=== PATIENT | female | born 1990 | race African-American/Black ===

== ENCOUNTER 2016-05-27 23:15 | Inpatient (IN) | payer MEDICAID ==
[2016-05-28 00:04] LABS: ABSOLUTE EOSINOPHILS # (AUTO) 0.1 10^3/uL (0.0-0.6); ABSOLUTE LYMPHOCYTES (AUTO) 2.4 10^3/uL (0.5-4.7); ABSOLUTE MONOCYTES (AUTO) 0.7 10^3/uL (0.1-1.4); ABSOLUTE NEUT (AUTO) 4.1 10^3/uL (1.7-8.2); BASOPHILS % (AUTO) 0.5 % (0-2); EOSINOPHILS % (AUTO) 1.5 % (0-6); HEMATOCRIT 32.2 % (36.0-47.0); HEMOGLOBIN 10.6 g/dL (12.0-15.5); HGB HCT DIFFERENCE -0.4; LYMPHOCYTES % (AUTO) 32.6 % (13-45); MEAN CORPUSCULAR HEMOGLOBIN 27.2 pg (27.0-33.4); MEAN CORPUSCULAR HGB CONC 32.9 g/dL (32.0-36.0); MEAN CORPUSCULAR VOLUME 83 fl (80-97); MONOCYTES % (AUTO) 9.3 % (3-13); RED BLOOD COUNT 3.89 10^6/uL (3.72-5.28); RED CELL DISTRIBUTION WIDTH 16.3 % (11.5-14.0); SEGMENTED NEUTROPHILS % (AUTO) 56.1 % (42-78); WHITE BLOOD COUNT 7.4 10^3/uL (4.0-10.5)
[2016-05-28] MEDS ORDERED: MISOPROSTOL 0.1 MG TABLET PO PRN (00:06)
[2016-05-28] MEDS ORDERED: RINGERS SOLUTION,LACTATED 300 ML IV ONE (00:07)
[2016-05-28] MEDS ORDERED: OXYTOCIN/NORMAL SALINE 1,000 ML IV PRN ×2 (00:07→09:55)
[2016-05-28] MEDS ORDERED: RINGERS SOLUTION,LACTATED 1,000 ML IV PRN (00:07)
[2016-05-28 00:11] LABS: APPEARANCE,URINE SLIGHTLY-CLOUDY; BILIRUBIN,URINE NEGATIVE (NEGATIVE); GLUCOSE, URINE NEGATIVE (NEGATIVE); KETONES,URINE 20 mg/dL (NEGATIVE); LEUKOCYTE ESTERASE,URINE MODERATE (NEGATIVE); NITRITE,URINE NEGATIVE (NEGATIVE); PROTEIN,URINE NEGATIVE (NEGATIVE); URINE SPECIFIC GRAVITY 1.011; UROBILINOGEN,URINE NEGATIVE mg/dL (<2.0)
[2016-05-28] MEDS ORDERED: MISOPROSTOL 0.1 MG TABLET PV ONE ×2 (00:15→06:00)
[2016-05-28 00:27] LABS: URINE BARBITURATES SCREEN NEGATIVE; URINE METHADONE SCREEN NEGATIVE; URINE OPIATES LOW NEGATIVE; URINE PHENCYCLIDINE SCREEN NEGATIVE
[2016-05-28] MEDS ORDERED: MISOPROSTOL 0.1 MG TABLET ONE ×2 (01:11→05:40)
[2016-05-28] MEDS ORDERED: MISOPROSTOL 0.1 MG TABLET PO ONE (06:00)
--- NOTE | 2016-05-28 08:00 | L&D Flow Sheet ---
LD Flowsheet Datetime Report Generated by CPN: 05/28/2016 08:00 Datetime: 05/28/2016 07:49 NBP Sys/Susana/Mean (mmHg): 116 (QS system process) : 65 (QS system process) : 83 (QS system process) Pulse: 93 (QS system process) LaborFlag: Labor (QS system process) Datetime: 05/28/2016 07:11 Communication Communication: Report Given to @ A Breen RN (Anahi Ledgerwood, RN) Datetime: 05/28/2016 07:08 NBP Sys/Susana/Mean (mmHg): 110 (QS system process) : 58 (QS system process) : 77 (QS system process) Pulse: 97 (QS system process) LaborFlag: Labor (QS system process) Datetime: 05/28/2016 07:00 Uterine Activity Monitor Mode: External (Anahi Ledgerwood, RN) Frequency (min): 1-3 (Anahi Ledgerwood, RN) Quality: Mild/Moderate (Anahi Ledgerwood, RN) Duration (sec): 50-70 (Anahi Ledgerwood, RN) Duration Criteria: Less than Two 120 Second Contractions (Anahi Ledgerwood, RN) Pattern: Normal: <= 5 Contractions in 10 Minutes (Anahi Ledgerwood, RN) Resting Tone (Palpate): Relaxed (Anahi Ledgerwood, RN) Assessment A Monitor Mode: External US (Anahi Ledgerwood, RN) FHR Baseline Rate : 130 (Anahi Ledgerwood, RN) FHR Baseline Changes: No Baseline Change (Anahi Ledgerwood, RN) Variability: Moderate 6-25 bpm (Anahi Ledgerwood, RN) Accelerations: 15X15 (Anahi Ledgerwood, RN) Decelerations: None (Anahi Ledgerwood, RN) Datetime: 05/28/2016 06:30 Uterine Activity Monitor Mode: External (Anahi Ledgerwood, RN) Frequency (min): 1.5-3 (Anahi Ledgerwood, RN) Quality: Mild/Moderate (Anahi Ledgerwood, RN) Duration (sec): 40-80 (Anahi Ledgerwood, RN) Duration Criteria: Less than Two 120 Second Contractions (Anahi Ledgerwood, RN) Pattern: Normal: <= 5 Contractions in 10 Minutes (Anahi Ledgerwood, RN) Resting Tone (Palpate): Relaxed (Anahi Ledgerwood, RN) Assessment A Monitor Mode: External US (Anahi Ledgerwood, RN) FHR Baseline Rate : 135 (Anahi Ledgerwood, RN) FHR Baseline Changes: No Baseline Change (Anahi Ledgerwood, RN) Variability: Moderate 6-25 bpm (Anahi Ledgerwood, RN) Accelerations: 15X15 (Anahi Ledgerwood, RN) Decelerations: None (Anahi Ledgerwood, RN) Datetime: 05/28/2016 06:29 NBP Sys/Susana/Mean (mmHg): 122 (QS system process) : 62 (QS system process) : 84 (QS system process) Pulse: 85 (QS system process) LaborFlag: Labor (QS system process) Datetime: 05/28/2016 06:00 Uterine Activity Monitor Mode: External (Anahi Ledgerwood, RN) Frequency (min): 1.5-4.5 (Anahi Ledgerwood, RN) Quality: Mild/Moderate (Anahi Ledgerwood, RN) Duration (sec): 60-80 (Anahi Ledgerwood, RN) Duration Criteria: Less than Two 120 Second Contractions (Anahi Ledgerwood, RN) Pattern: Normal: <= 5 Contractions in 10 Minutes (Anahi Ledgerwood, RN) Resting Tone (Palpate): Relaxed (Anahi Ledgerwood, RN) Assessment A Monitor Mode: External US (Anahi Ledgerwood, RN) FHR Baseline Rate : 135 (Anahi Ledgerwood, RN) FHR Baseline Changes: No Baseline Change (Anahi Ledgerwood, RN) Variability: Moderate 6-25 bpm (Anahi Ledgerwood, RN) Accelerations: 15X15 (Anahi Ledgerwood, RN) Decelerations: None (Anahi Ledgerwood, RN) Datetime: 05/28/2016 05:51 Medications Cervical Ripening Agents: Cytotec @ 0.05 PO/0.025 PV (Anahi Ledgerwood, RN) Datetime: 05/28/2016 05:48 NBP Sys/Susana/Mean (mmHg): 110 (QS system process) : 57 (QS system process) : 80 (QS system process) Pulse: 88 (QS system process) Respirations: 14 (Anahi Ledgerwood, RN) LaborFlag: Labor (QS system process) Datetime: 05/28/2016 05:30 Uterine Activity Monitor Mode: External (Anahi Ledgerwood, RN) Frequency (min): 1.5-3.5 (Anahi Ledgerwood, RN) Quality: Mild/Moderate (Anahi Ledgerwood, RN) Duration (sec): 70-90 (Anahi Ledgerwood, RN) Duration Criteria: Less than Two 120 Second Contractions (Anahi Ledgerwood, RN) Pattern: Normal: <= 5 Contractions in 10 Minutes (Anahi Ledgerwood, RN) Resting Tone (Palpate): Relaxed (Anahi Ledgerwood, RN) Assessment A Monitor Mode: External US (Anahi Ledgerwood, RN) FHR Baseline Rate : 130 (Anahi Ledgerwood, RN) FHR Baseline Changes: No Baseline Change (Anahi Ledgerwood, RN) Variability: Moderate 6-25 bpm (Aanhi Ledgerwood, RN) Accelerations: 15X15 (Anahi Ledgerwood, RN) Decelerations: None (Anahi Ledgerwood, RN) Datetime: 05/28/2016 05:23 Communication Communication: Provider Orders Received; Call/Page Placed to Provider (Anahi Ledgerwood, RN) Communication Comments: Dr Wesly was notified over the phone of pt's VE. Order received for cytotec 0.05 mg PO and 0.025 PV (Anahi Ledgerwood, RN) Datetime: 05/28/2016 05:19 Vaginal Exam Dilatation (cm): 2.0 (Anahi Ledgerwood, RN) Effacement (%): 60 (Anahi Ledgerwood, RN) Station: -2 (Anahi Ledgerwood, RN) Exam by: O Ledgerwood RN (Anahi Ledgerwood, RN) Datetime: 05/28/2016 05:08 NBP Sys/Susana/Mean (mmHg): 128 (QS system process) : 91 (QS system process) : 104 (QS system process) Pulse: 100 (QS system process) LaborFlag: Labor (QS system process) Datetime: 05/28/2016 05:00 Uterine Activity Monitor Mode: External (Anahi Ledgerwood, RN) Frequency (min): 1.5-5 (Anahi Ledgerwood, RN) Quality: Mild/Moderate (Anahi Ledgerwood, RN) Duration (sec): 50-80 (Anahi Ledgerwood, RN) Duration Criteria: Less than Two 120 Second Contractions (Anahi Ledgerwood, RN) Pattern: Normal: <= 5 Contractions in 10 Minutes (Anahi Ledgerwood, RN) Resting Tone (Palpate): Relaxed (Anahi Ledgerwood, RN) Assessment A Monitor Mode: External US (Anahi Ledgerwood, RN) FHR Baseline Rate : 130 (Anahi Ledgerwood, RN) FHR Baseline Changes: No Baseline Change (Anahi Ledgerwood, RN) Variability: Moderate 6-25 bpm (Anahi Ledgerwood, RN) Accelerations: 15X15 (Anahi Ledgerwood, RN) Decelerations: None (Anahi Ledgerwood, RN) Datetime: 05/28/2016 04:30 Uterine Activity Monitor Mode: External (Anahi Ledgerwood, RN) Frequency (min): 1.5-4.5 (Anahi Ledgerwood, RN) Quality: Mild (Anahi Ledgerwood, RN) Duration (sec): 50-80 (Anahi Ledgerwood, RN) Duration Criteria: Less than Two 120 Second Contractions (Anahi Ledgerwood, RN) Pattern: Normal: <= 5 Contractions in 10 Minutes (Anahi Ledgerwood, RN) Resting Tone (Palpate): Relaxed (Anahi Ledgerwood, RN) Assessment A Monitor Mode: External US (Anahi Ledgerwood, RN) FHR Baseline Rate : 125 (Anahi Ledgerwood, RN) FHR Baseline Changes: No Baseline Change (Anahi Ledgerwood, RN) Variability: Moderate 6-25 bpm (Anahi Ledgerwood, RN) Accelerations: None (Anahi Ledgerwood, RN) Decelerations: None (Anahi Ledgerwood, RN) Datetime: 05/28/2016 04:28 NBP Sys/Susana/Mean (mmHg): 128 (QS system process) : 91 (QS system process) : 106 (QS system process) Pulse: 107 (QS system process) LaborFlag: Labor (QS system process) Datetime: 05/28/2016 04:00 Uterine Activity Monitor Mode: External (Anahi Ledgerwood, RN) Frequency (min): 1.5-5 (Anahi Ledgerwood, RN) Quality: Mild (Anahi Ledgerwood, RN) Duration (sec): 50-80 (Anahi Ledgerwood, RN) Duration Criteria: Less than Two 120 Second Contractions (Anahi Ledgerwood, RN) Pattern: Normal: <= 5 Contractions in 10 Minutes (Anahi Ledgerwood, RN) Resting Tone (Palpate): Relaxed (Anahi Ledgerwood, RN) Assessment A Monitor Mode: External US (Anahi Ledgerwood, RN) FHR Baseline Rate : 125 (Anahi Ledgerwood, RN) FHR Baseline Changes: No Baseline Change (Anahi Ledgerwood, RN) Variability: Moderate 6-25 bpm (Anahi Ledgerwood, RN) Accelerations: 15X15 (Anahi Ledgerwood, RN) Decelerations: None (Anahi Ledgerwood, RN) Datetime: 05/28/2016 03:48 NBP Sys/Susana/Mean (mmHg): 123 (QS system process) : 73 (QS system process) : 95 (QS system process) Pulse: 94 (QS system process) LaborFlag: Labor (QS system process) Datetime: 05/28/2016 03:30 Uterine Activity Monitor Mode: External (Anahikavon Logan, RN) Frequency (min): 2.5-4.5 (Anahikavon Logan, RN) Quality: Mild (Anahi Ledgerwood, RN) Duration (sec): 70-80 (Anahi Ledgerwood, RN) Duration Criteria: Less than Two 120 Second Contractions (Anahi Ledgerwood, RN) Pattern: Normal: <= 5 Contractions in 10 Minutes (Anahi Calvingerwood, RN) Resting Tone (Palpate): Relaxed (Anahi Calvingerwood, RN) Assessment A Monitor Mode: External US (Anahi Ledgerwood, RN) FHR Baseline Rate : 135 (Anahi Ledgerwood, RN) FHR Baseline Changes: No Baseline Change (Anahi Ledgerwood, RN) Variability: Moderate 6-25 bpm (Anahi Ledgerwood, RN) Accelerations: 15X15 (Anahi Ledgerwood, RN) Decelerations: None (Anahi Ledgerwood, RN) Datetime: 05/28/2016 03:00 Uterine Activity Monitor Mode: External (Anahi Ledgerwood, RN) Frequency (min): 1.5-4.5 (Anahi Ledgerwood, RN) Quality: Mild (Anahi Ledgerwood, RN) Duration (sec): 50-80 (Anahi Ledgerwood, RN) Duration Criteria: Less than Two 120 Second Contractions (Anahi Ledgerwood, RN) Pattern: Normal: <= 5 Contractions in 10 Minutes (Anahi Ledgerwood, RN) Resting Tone (Palpate): Relaxed (Anahi Ledgerwood, RN) Assessment A Monitor Mode: External US (Anahi Ledgerwood, RN) FHR Baseline Rate : 130 (Anahi Ledgerwood, RN) FHR Baseline Changes: No Baseline Change (Anahi Ledgerwood, RN) Variability: Moderate 6-25 bpm (Anahi Ledgerwood, RN) Accelerations: 15X15 (Anahi Ledgerwood, RN) Decelerations: None (Anahi Ledgerwood, RN) Datetime: 05/28/2016 02:30 Uterine Activity Monitor Mode: External (Anahi Ledgerwood, RN) Frequency (min): 1-3 (Anahi Ledgerwood, RN) Quality: Mild/Moderate (Anahi Ledgerwood, RN) Duration (sec): 60-80 (Anahi Ledgerwood, RN) Duration Criteria: Less than Two 120 Second Contractions (Anahi Ledgerwood, RN) Pattern: Normal: <= 5 Contractions in 10 Minutes (Anahi Ledgerwood, RN) Resting Tone (Palpate): Relaxed (Anahi Ledgerwood, RN) Assessment A Monitor Mode: External US (Anahi Ledgerwood, RN) FHR Baseline Rate : 135 (Anahi Ledgerwood, RN) FHR Baseline Changes: No Baseline Change (Anahi Ledgerwood, RN) Variability: Moderate 6-25 bpm (Anahi Ledgerwood, RN) Accelerations: 15X15 (Anahi Ledgerwood, RN) Decelerations: None (Anahi Ledgerwood, RN) Datetime: 05/28/2016 02:00 Uterine Activity Monitor Mode: External (Anahi Ledgerwood, RN) Frequency (min): 1-4.5 (Anahi Ledgerwood, RN) Quality: Mild/Moderate (Anahi Ledgerwood, RN) Duration (sec): 40-70 (Anahi Ledgerwood, RN) Duration Criteria: Less than Two 120 Second Contractions (Anahi Ledgerwood, RN) Pattern: Normal: <= 5 Contractions in 10 Minutes (Anahi Ledgerwood, RN) Resting Tone (Palpate): Relaxed (Anahi Ledgerwood, RN) Assessment A Monitor Mode: External US (Anahi Ledgerwood, RN) FHR Baseline Rate : 135 (Anahi Ledgerwood, RN) FHR Baseline Changes: No Baseline Change (Anahi Ledgerwood, RN) Variability: Moderate 6-25 bpm (Anahi Ledgerwood, RN) Accelerations: 15X15 (Anahi Ledgerwood, RN) Decelerations: None (Anahi Ledgerwood, RN) Datetime: 05/28/2016 01:30 Uterine Activity Monitor Mode: External (Anahi Ledgerwood, RN) Frequency (min): 2.5-3.5 (Anahi Ledgerwood, RN) Quality: Mild (Anahi Ledgerwood, RN) Duration (sec): 60-80 (Anahi Ledgerwood, RN) Duration Criteria: Less than Two 120 Second Contractions (Anahi Ledgerwood, RN) Pattern: Normal: <= 5 Contractions in 10 Minutes (Anahi Ledgerwood, RN) Resting Tone (Palpate): Relaxed (Anahi Ledgerwood, RN) Assessment A Monitor Mode: External US (Anahi Ledgerwood, RN) FHR Baseline Rate : 130 (Anahi Ledgerwood, RN) FHR Baseline Changes: No Baseline Change (Anahi Ledgerwood, RN) Variability: Moderate 6-25 bpm (Anahi Ledgerwood, RN) Accelerations: 15X15 (Anahi Ledgerwood, RN) Decelerations: None (Anahi Ledgerwood, RN) Datetime: 05/28/2016 01:21 Medications Cervical Ripening Agents: Cytotec @ 0.050 PO/ 0.025 PV (Anahi Ledgerwood, RN) Datetime: 05/28/2016 01:08 NBP Sys/Susana/Mean (mmHg): 149 (QS system process) : 78 (QS system process) : 105 (QS system process) Pulse: 100 (QS system process) Respirations: 14 (Anahi Calvingerwood, RN) LaborFlag: Labor (QS system process) Datetime: 05/28/2016 01:00 Uterine Activity Monitor Mode: External; Palpation (Anahi Calvingerwood, RN) Frequency (min): 2.5-3 (Anahi Ledgerwood, RN) Quality: Mild (Anahi Ledgerwood, RN) Duration (sec): 70-80 (Anahi Ledgerwood, RN) Duration Criteria: Less than Two 120 Second Contractions (Anahi Ledgerwood, RN) Pattern: Normal: <= 5 Contractions in 10 Minutes (Anahi Calvingerwood, RN) Resting Tone (Palpate): Relaxed (Anahi Ledgerwood, RN) Assessment A Monitor Mode: External US (Anahi Ledgerwood, RN) FHR Baseline Rate : 130 (Anahi Ledgerwood, RN) FHR Baseline Changes: No Baseline Change (Anahi Ledgerwood, RN) Variability: Moderate 6-25 bpm (Anahi Ledgerwood, RN) Accelerations: 15X15 (Anahi Ledgerwood, RN) Decelerations: None (Anahi Ledgerwood, RN) Datetime: 05/28/2016 00:30 Uterine Activity Monitor Mode: External (Anahi Ledgerwood, RN) Frequency (min): 2-3.5 (Anahi Ledgerwood, RN) Quality: Mild (Anahi Ledgerwood, RN) Duration (sec): 70-80 (Anahi Ledgerwood, RN) Duration Criteria: Less than Two 120 Second Contractions (Anahi Ledgerwood, RN) Pattern: Normal: <= 5 Contractions in 10 Minutes (Anahi Ledgerwood, RN) Resting Tone (Palpate): Relaxed (Anahi Ledgerwood, RN) Assessment A Monitor Mode: External US (Anahi Ledgerwood, RN) FHR Baseline Rate : 135 (Anahi Ledgerwood, RN) FHR Baseline Changes: No Baseline Change (Anahi Ledgerwood, RN) Variability: Moderate 6-25 bpm (Anahi Ledgerwood, RN) Accelerations: 15X15 (Anahi Ledgerwood, RN) Decelerations: None (Anahi Ledgerwood, RN) Datetime: 05/28/2016 00:00 Uterine Activity Monitor Mode: External; Palpation (Anahi Ledgerwood, RN) Frequency (min): 1.5-4 (Anahi Ledgerwood, RN) Quality: Mild (Anahi Ledgerwood, RN) Duration (sec): 60-80 (Anahi Ledgerwood, RN) Duration Criteria: Less than Two 120 Second Contractions (Anahi Ledgerwood, RN) Pattern: Normal: <= 5 Contractions in 10 Minutes (Anahi Ledgerwood, RN) Resting Tone (Palpate): Relaxed (Anahi Ledgerwood, RN) Assessment A Monitor Mode: External US (Anahi Ledgerwood, RN) FHR Baseline Rate : 130 (Anahi Ledgerwood, RN) FHR Baseline Changes: No Baseline Change (Anahi Ledgerwood, RN) Variability: Moderate 6-25 bpm (Anahi Ledgerwood, RN) Accelerations: 15X15 (Anahi Ledgerwood, RN) Decelerations: None (Anahi Ledgerwood, RN) Datetime: 05/27/2016 23:50 Pain Pain Scale: 1 ([facility], ) Pain Presence: Intermittent ([facility], ) Pain Type: Contraction ([facility], ) Pain Location: Abdomen ([facility], ) Pain Coping: Talking Through Contractions ([facility], ) Maternal Assessment Level of Consciousness: Fully Conscious ([facility], ) DTR's/Clonus: DTRs 2+; No Clonus ([facility], ) Headache: Denies ([facility], ) Breath Sounds, Left: Clear and Equal (Anahi Logan RN) Breath Sounds, Right: Clear and Equal (Anahi Logan RN) Nausea/Vomiting: Denies (Anahi Logan RN) RUQ Epigastric Pain: Denies (Anahi Logan RN) Teaching Instructional Method: Demo; Verbal; Patient Instructed (Anahi Logan RN) Plan of Care: Plan of Care Discussed (Anahi Logan RN) Unit Routine: [place] to Room; Call [place]; Bed; Visiting Policy; Handwashing; Monitoring; Safety/Fall Risk Prevention (Anahi Logan RN) Labor/Induction: Cervical Ripening; Induction (Anahi Logan RN) LaborFlag: Labor (QS system process) Datetime: 05/27/2016 23:39 Vaginal Exam Dilatation (cm): 1.5 (Anahi Ledgerwood, RN) Exam by: O Lissethwood RN (Anahi Ledgerwood, RN) Vaginal Exam Comments: thick, high (Anahi Ledgerwood, RN) Datetime: 05/27/2016 23:20 Vital Signs Stage of : Labor (Anahi Ledgerwood, RN)
[2016-05-28] MEDS ORDERED: OXYTOCIN/NORMAL SALINE 20 UNIT/1,000 ML RTUINJ ONE ×2 (09:55→18:23)
--- NOTE | 2016-05-28 16:17 | L&D Progress Notes ---
PROGRESS NOTES Datetime Report Generated by CPN: 05/28/2016 16:17 PROGRESS NOTE Impression: Reassuring Heart Rate Procedures: Artificial ROM; Sterile Vag Exam Plan: Continue Present Management Vital Signs : Reviewed; Within Normal Limits Comment: SVE w AROM with copious amount of clear fluid noted. Fluid slowly leaked out-vertex firmly against cx at finish. VAGINAL EXAM Dilatation: 2 Dilatation: 2 Effacement: 60 Effacement: 50 Station: -2 Station: -3 MEMBRANES Pooling: Negative Membranes: Ruptured Membranes: Intact Amniotic Fluid Color: Clear FETUS A Monitoring: External US FHR Category: Category I : 40.2 Estimated Weight (gm): 4000 Presentation: Vertex SIGNATURE SIGNATURE: [id number] Assignment: Mervin Garnett DO Signature: with User ID: [email or web address] : with User ID: Ava : I personally evaluated and examined the patient in conjunction with the MLP and agree with the assessment, treatment plan and disposition.
[2016-05-28] MEDS ORDERED: EPHEDRINE SULFATE INJ 50 MG/1 ML AMPULE ONE (18:23)
[2016-05-28] MEDS ORDERED: FENTANYL/BUPIVACAINE/NS/PF 200 MCG/100 ML RTUINJ EPI ONE (18:23)
[2016-05-28] MEDS ORDERED: LIDOCAINE 1% INJ-PF (10 MG/ML) 30 ML SDV ONE (18:23)
[2016-05-28] MEDS ORDERED: MISOPROSTOL 0.2 MG TABLET ONE (18:23)
[2016-05-28] MEDS ORDERED: BUPIVACAINE HCL 0.25 % INJ/PF (2.5 MG/1 ML) 30 ML VIAL ONE (18:24)
--- NOTE | 2016-05-28 20:01 | L&D Flow Sheet ---
LD Flowsheet Datetime Report Generated by CPN: 05/28/2016 20:00 Datetime: 05/28/2016 19:52 NBP Sys/Susana/Mean (mmHg): 140 (QS system process) : 74 (QS system process) : 98 (QS system process) Pulse: 107 (QS system process) LaborFlag: Labor (QS system process) Datetime: 05/28/2016 19:50 NBP Sys/Susana/Mean (mmHg): 144 (QS system process) : 94 (QS system process) : 115 (QS system process) LaborFlag: Labor (QS system process) Datetime: 05/28/2016 19:46 NBP Sys/Susana/Mean (mmHg): 140 (Berenice Prakash) : 78 (Berenice Prakash) Anesthesia Plans: Epidural (Berenice Prakash) Epidural Positioning: Sitting (Berenice Prakash) Epidural Procedure: Test Dose (Berenice Prakash) LaborFlag: Labor (QS system process) Datetime: 05/28/2016 19:44 NBP Sys/Susana/Mean (mmHg): 139 (Berenice Prakash) : 77 (Berenice Prakash) Anesthesia Plans: Epidural (Berenice Prakash) Epidural Positioning: Sitting (Berenice Prakash) Epidural Procedure: Cath Placed (Berenice Prakash) LaborFlag: Labor (QS system process) Datetime: 05/28/2016 19:43 Anesthesia Plans: Epidural (Berenice Prakash) Epidural Positioning: Sitting (Berenice Prakash) Datetime: 05/28/2016 19:42 NBP Sys/Susana/Mean (mmHg): 140 (Berenice Prakash) : 76 (Berenice Prakash) LaborFlag: Labor (QS system process) Datetime: 05/28/2016 19:40 NBP Sys/Susana/Mean (mmHg): 138 (Berenice Prakash) : 79 (Berenice Prakash) LaborFlag: Labor (QS system process) Datetime: 05/28/2016 19:38 Anesthesia Comments: Dr Adwoakan at the bedside (Berenice Prakash) Datetime: 05/28/2016 19:34 NBP Sys/Susana/Mean (mmHg): 137 (QS system process) : 78 (QS system process) : 100 (QS system process) Pulse: 109 (QS system process) LaborFlag: Labor (QS system process) Datetime: 05/28/2016 19:29 Pulse: 108 (QS system process) SpO2 (%): 92 (QS system process) LaborFlag: Labor (QS system process) Datetime: 05/28/2016 19:28 Procedure Type: epidural (Berenice Prakash) Procedure Verify: Correct Patient Identity; Correct Side and Site are Marked; Accurate Procedure Consent Form; Agreement on Procedure to be Done; Correct Patient Position; Relevant Images and Results are Properly Labeled and Displayed; Safety Precautions Based on Patient History or Medication Use (Berenice Prakash) Anesthesia Plans: Epidural (Berenice Prakash) Epidural Positioning: Sitting (Berenice Prakash) Datetime: 05/28/2016 19:22 Anesthesia Comments: patient sitting for epidural (Berenice Prakash) Datetime: 05/28/2016 19:19 NBP Sys/Susana/Mean (mmHg): 148 (QS system process) : 86 (QS system process) : 110 (QS system process) Pulse: 115 (QS system process) LaborFlag: Labor (QS system process) Datetime: 05/28/2016 19:18 Communication Comments: Report given to AKimmy Prakash RN (Shannan Breen, RN) Datetime: 05/28/2016 19:16 NBP Sys/Susana/Mean (mmHg): 147 (QS system process) : 76 (QS system process) : 103 (QS system process) Pulse: 106 (QS system process) LaborFlag: Labor (QS system process) Datetime: 05/28/2016 19:15 Monitor Mode: External; Palpation (Shannan Breen RN) Frequency (min): 1-4 (Shannan Breen RN) Quality: Moderate (Shannan Breen RN) Duration (sec): 50-80 (Shannan Breen RN) Resting Tone (Palpate): Relaxed (Shannan Breen RN) Monitor Mode: External US (Shannan Breen RN) FHR Baseline Rate : 130 (Shannan Breen RN) Variability: Moderate 6-25 bpm (Shannan Breen RN) Accelerations: 15X15 (Shannan Breen RN) Decelerations: None (Shannan Breen RN) Pitocin (milliunit): Pitocin Remains (milliunits) @ 20 (Shannan Breen RN) Procedure Type: epidural (Berenice Prakash) Procedure Verify: Correct Patient Identity; Correct Side and Site are Marked; Accurate Procedure Consent Form; Agreement on Procedure to be Done; Correct Patient Position; Relevant Images and Results are Properly Labeled and Displayed; Safety Precautions Based on Patient History or Medication Use (Berenice Prakash) Datetime: 05/28/2016 19:13 Monitor Interventions for FHR: Ultrasound Adjusted (Shannan Breen RN) Communication: RN at Bedside (Shannan Breen RN) Datetime: 05/28/2016 19:11 Patient Care Comments: IV infiltrated. New IV started in L Forearm 18gauge (Shannan Breen RN) Datetime: 05/28/2016 19:05 NBP Sys/Susana/Mean (mmHg): 155 (QS system process) : 105 (QS system process) : 122 (QS system process) Pulse: 110 (QS system process) LaborFlag: Labor (QS system process) Datetime: 05/28/2016 19:00 Monitor Mode: External; Palpation (Shannan Breen RN) Frequency (min): 1-4 (Shannan Breen RN) Quality: Moderate (Shannan Breen RN) Duration (sec): 50-80 (Shannan rBeen RN) Resting Tone (Palpate): Relaxed (Shannan Breen RN) Monitor Mode: External US (Shannan Breen RN) FHR Baseline Rate : 125 (Shannan Breen RN) Variability: Moderate 6-25 bpm (Shannan Breen RN) Accelerations: 15X15 (Shannan Breen RN) Decelerations: None (Shannan Breen RN) Pitocin (milliunit): Pitocin Remains (milliunits) @ 20 (Shannan Breen RN) Procedure Type: epidural (Berenicevidhi Prakash) Procedure Verify: Correct Patient Identity; Correct Side and Site are Marked; Accurate Procedure Consent Form; Agreement on Procedure to be Done; Correct Patient Position; Relevant Images and Results are Properly Labeled and Displayed; Safety Precautions Based on Patient History or Medication Use (Berenicevidhi Prakash) Datetime: 05/28/2016 18:56 Bedside Blood Glucose: 65 L (Annotations: MD Notified) (QS system process) LaborFlag: Labor (QS system process) Datetime: 05/28/2016 18:49 NBP Sys/Susana/Mean (mmHg): 141 (QS system process) : 79 (QS system process) : 102 (QS system process) Pulse: 103 (QS system process) LaborFlag: Labor (QS system process) Datetime: 05/28/2016 18:45 Monitor Mode: External (Shannan Breen RN) Frequency (min): 1-3 (Shannan Breen RN) Quality: Mild/Moderate (Shannan Breen RN) Duration (sec): 50-80 (Shannan Breen RN) Resting Tone (Palpate): Relaxed (Shannan Breen RN) Monitor Mode: External US (Shannan Breen RN) FHR Baseline Rate : 120 (Shannan Breen RN) Variability: Moderate 6-25 bpm (Shannan Breen RN) Accelerations: 15X15 (Shannan Breen RN) Decelerations: None (Shannan Breen RN) Pitocin (milliunit): Pitocin Remains (milliunits) @ 20 (Shannan Breen RN) Datetime: 05/28/2016 18:39 Monitor Interventions for UA: [place] Adjusted (Shannan Breen RN) Dilatation (cm): 5.5 (Shannan Breen RN) Effacement (%): 80 (Shannan Breen RN) Station: -1 (Shannan Breen RN) Exam by: Ulices Charles RNC (Shannan Breen RN) Datetime: 05/28/2016 18:34 NBP Sys/Susana/Mean (mmHg): 137 (QS system process) : 99 (QS system process) : 114 (QS system process) Pulse: 100 (QS system process) LaborFlag: Labor (QS system process) Datetime: 05/28/2016 18:30 Monitor Mode: External (Shannan Breen RN) Frequency (min): 1-4 (Shannan Breen RN) Quality: Mild/Moderate (Shannan Breen RN) Duration (sec): 50-80 (Shannan Breen RN) Resting Tone (Palpate): Relaxed (Shannan Breen RN) Monitor Mode: External US (Shannan Breen RN) FHR Baseline Rate : 125 (Shannan Breen RN) Variability: Moderate 6-25 bpm (Shannan Breen RN) Accelerations: 15X15 (Shannan Breen RN) Decelerations: None (Shannan Breen RN) Pitocin (milliunit): Pitocin Remains (milliunits) @ 20 (Shannan Breen RN) Datetime: 05/28/2016 18:16 Pain Coping: Requesting Pain Medication or Epidural (Shannan Breen RN) IV/Blood Work: IV Bolus Started (Shannan Breen RN) Procedure Verify: Correct Patient Identity; Correct Side and Site are Marked; Accurate Procedure Consent Form; Agreement on Procedure to be Done (Shannan Breen RN) Anesthesia Plans: Epidural (Shannan Breen RN) Datetime: 05/28/2016 18:15 Monitor Mode: External; Palpation (Shannan Breen RN) Quality: Mild/Moderate (Shannan Breen RN) Resting Tone (Palpate): Relaxed (Shannan Breen RN) Contraction Comments: contractions not tracing on monitor (Shannan Breen RN) Monitor Mode: External US (Shannan Breen RN) FHR Baseline Rate : 135 (Shannan Breen RN) Variability: Moderate 6-25 bpm (Shannan Breen RN) Accelerations: 10X10 (Shannan Breen RN) Decelerations: None (Shannan Breen RN) Pitocin (milliunit): Pitocin Remains (milliunits) @ 20 (Shannan Breen RN) Datetime: 05/28/2016 18:14 Dilatation (cm): 3.0 (Shannan Breen, RN) Effacement (%): 70 (Shannan Breen, RN) Station: -1 (Shannan Breen, RN) Exam by: Jhonathan Breen RN (Shannan Breen RN) Datetime: 05/28/2016 18:10 Monitor Interventions for UA: [place] Adjusted (Shannan Breen, RN) Datetime: 05/28/2016 18:01 Pitocin (milliunit): Pitocin Remains (milliunits) @ 20 (Shannan Breen, RN) Datetime: 05/28/2016 18:00 Monitor Mode: External (Shannan Breen, RN) Frequency (min): 1-3 (Shannan Breen, RN) Quality: Mild/Moderate (Shannan Breen, RN) Duration (sec): 50-80 (Shannan Breen, RN) Resting Tone (Palpate): Relaxed (Shannan Breen, RN) Monitor Mode: External US (Shannan Breen, RN) FHR Baseline Rate : 135 (Shannan Breen, RN) Variability: Moderate 6-25 bpm (Shannan Breen, RN) Accelerations: 10X10 (Shannan Breen, RN) Decelerations: None (Shannan Breen, RN) Datetime: 05/28/2016 17:55 Monitor Interventions for UA: [place] Adjusted (Shannan Breen, RN) Datetime: 05/28/2016 17:54 Monitor Interventions for FHR: Ultrasound Adjusted (Shannan Breen RN) Communication: RN at Bedside (Shannan Breen RN) Datetime: 05/28/2016 17:45 Monitor Mode: External; Palpation (Shannan Breen RN) Frequency (min): 1-3 (Shannan Breen RN) Quality: Mild/Moderate (Shannan Breen RN) Duration (sec): 50-80 (Shannan Breen, RN) Resting Tone (Palpate): Relaxed (Shannan Breen RN) Monitor Mode: External US (Shannan Breen RN) FHR Baseline Rate : 125 (Shannan Breen RN) Variability: Moderate 6-25 bpm (Shannan Breen, RN) Accelerations: 15X15 (Shannan Breen, RN) Decelerations: None (Shannan Breen, RN) Pain Coping: Breathing Through Contractions (Shannan Breen RN) Pain Assessment Comments: Pt asking about different pain control. Denies need for pain medicine or epidural at this time. Offered warm compress, position changes. FOB at bedside. (Shannan Breen RN) Pitocin (milliunit): Pitocin Remains (milliunits) @ 20 (Shannan Breen RN) Comfort Measures: Breathing/Relaxation; Coaching; Hot/Cold Pack; Family Support (Shannan Breen RN) LaborFlag: Labor (QS system process) Datetime: 05/28/2016 17:35 NBP Sys/Susana/Mean (mmHg): 141 (QS system process) : 77 (QS system process) : 103 (QS system process) Pulse: 104 (QS system process) LaborFlag: Labor (QS system process) Datetime: 05/28/2016 17:30 Monitor Mode: External; Palpation (Shannan Breen RN) Frequency (min): 1-5 (Shannan Breen RN) Quality: Mild/Moderate (Shannan Breen RN) Duration (sec): 50-80 (Shannan Breen RN) Resting Tone (Palpate): Relaxed (Shannan Breen RN) Monitor Mode: External US (Shannan Breen RN) FHR Baseline Rate : 135 (Shannan Breen RN) Variability: Moderate 6-25 bpm (Shannan Breen RN) Accelerations: 15X15 (Shannan Breen RN) Decelerations: None (Shannan Breen RN) Pitocin (milliunit): Pitocin Remains (milliunits) @ 20 (Shannan Breen RN) Datetime: 05/28/2016 17:19 NBP Sys/Susana/Mean (mmHg): 132 (QS system process) : 73 (QS system process) : 97 (QS system process) Pulse: 90 (QS system process) LaborFlag: Labor (QS system process) Datetime: 05/28/2016 17:15 Monitor Mode: External (Shannan Breen RN) Frequency (min): 1-3 (Shannan Breen RN) Quality: Mild (Shannan Breen RN) Duration (sec): 50-80 (Shannan Breen RN) Resting Tone (Palpate): Relaxed (Shannan Breen RN) Monitor Mode: External US (Shannan Breen RN) FHR Baseline Rate : 135 (Shannan Breen RN) Variability: Moderate 6-25 bpm (Shannan Breen RN) Accelerations: 15X15 (Shannan Breen RN) Decelerations: None (Shannan Breen RN) Pitocin (milliunit): Pitocin Remains (milliunits) @ 20 (Shannan Breen RN) Datetime: 05/28/2016 17:09 Respirations: 16 (Shannan Breen RN) Temperature (F): 98.6 (Shannan Breen RN) Temperature (C): 37.0 (QS system process) Pain Scale: 4 (Shannan Breen RN) Pain Presence: Intermittent (Shannan Breen RN) Pain Type: Contraction (Shannan Breen RN) Pain Location: Abdomen (Shannan Breen RN) Pain Relief Measures: Comfort Measures (Shannan Breen RN) Pain Coping: Talking Through Contractions (Shannan Breen RN) LaborFlag: Labor (QS system process) Datetime: 05/28/2016 17:04 NBP Sys/Susana/Mean (mmHg): 135 (QS system process) : 77 (QS system process) : 100 (QS system process) Pulse: 95 (QS system process) LaborFlag: Labor (QS system process) Datetime: 05/28/2016 17:00 Monitor Mode: External (Shannan Breen, RN) Frequency (min): 1-3 (Shannan Breen, RN) Quality: Mild (Shannan Jamshid, RN) Duration (sec): 50-80 (Shannan Jamshid, RN) Resting Tone (Palpate): Relaxed (Shannan Breen, RN) Monitor Mode: External US (Shannan Breen, RN) FHR Baseline Rate : 125 (Shannan Jamshid, RN) Variability: Moderate 6-25 bpm (Shannan Breen, RN) Accelerations: 15X15 (Shannan Jamshid, RN) Decelerations: None (Shannangilda Breen, RN) Pitocin (milliunit): Pitocin Remains (milliunits) @ 20 (Shannan Jamshid, RN) Datetime: 05/28/2016 16:50 NBP Sys/Susana/Mean (mmHg): 134 (QS system process) : 77 (QS system process) : 99 (QS system process) Pulse: 96 (QS system process) LaborFlag: Labor (QS system process) Datetime: 05/28/2016 16:45 Monitor Mode: External (Shannan Breen, RN) Frequency (min): 1-5 (Shannan Breen RN) Quality: Mild (Shannan Breen, RN) Duration (sec): 50-80 (Shannan Breen, RN) Duration Criteria: Less than Two 120 Second Contractions (Shannan Breen, RN) Pattern: Normal: <= 5 Contractions in 10 Minutes (Shannan Breen RN) Resting Tone (Palpate): Relaxed (Shannan Breen, RN) Monitor Mode: External US (Shannan Breen, RN) FHR Baseline Rate : 125 (Shannan Breen, RN) Variability: Moderate 6-25 bpm (Shannan Breen, RN) Accelerations: 15X15 (Shannan Breen, RN) Decelerations: None (Shannan Breen, RN) Pitocin (milliunit): Pitocin Remains (milliunits) @ 20 (Shannan Breen, RN) Datetime: 05/28/2016 16:34 NBP Sys/Susana/Mean (mmHg): 120 (QS system process) : 71 (QS system process) : 90 (QS system process) Pulse: 91 (QS system process) LaborFlag: Labor (QS system process) Datetime: 05/28/2016 16:30 Monitor Mode: External (Shannan Jamshid, RN) Frequency (min): 1-4 (Shannan Breen, RN) Quality: Mild (Shannan Breen, RN) Duration (sec): 50-80 (Shannan Jamshid, RN) Resting Tone (Palpate): Relaxed (Shannangilda Breen, RN) Monitor Mode: External US (Shannangilda Breen, RN) FHR Baseline Rate : 125 (Shannan Jamshid, RN) Variability: Moderate 6-25 bpm (Shannan Jamshid, RN) Accelerations: 15X15 (Shannan Jamshid, RN) Decelerations: None (Shannangilda Breen, RN) Pitocin (milliunit): Pitocin Remains (milliunits) @ 20 (Shannan Jamshid, RN) Datetime: 05/28/2016 16:19 NBP Sys/Susana/Mean (mmHg): 128 (QS system process) : 78 (QS system process) : 97 (QS system process) Pulse: 81 (QS system process) LaborFlag: Labor (QS system process) Datetime: 05/28/2016 16:15 Monitor Mode: External (Shannan Breen RN) Frequency (min): 1-3 (Shannan Breen RN) Quality: Mild (Shannan Breen RN) Duration (sec): 50-80 (Shannan Breen RN) Resting Tone (Palpate): Relaxed (Shannan Breen RN) Monitor Mode: External US (Shannan Breen RN) FHR Baseline Rate : 135 (Shannan Breen RN) Variability: Moderate 6-25 bpm (Shannan Breen RN) Accelerations: 15X15 (Shannan Breen RN) Decelerations: None (Shannan Breen RN) Pitocin (milliunit): Pitocin Remains (milliunits) @ 20 (Shannan Breen RN) Datetime: 05/28/2016 16:07 Dilatation (cm): 2.0 (Shannan Breen RN) Effacement (%): 60 (Shannan Breen RN) Station: -2 (Shannan Breen RN) Exam by: Bernabe houser CNM (Shannan Breen RN) Membrane Status: Ruptured (Shannan Breen RN) Membranes Rupture Method: Artificial (Shannan Breen RN) Amniotic Fluid Color: Clear (Shannan Breen RN) Amniotic Fluid Amount: Large (Shannan Breen RN) Amniotic Fluid Odor: Normal (Shannan Breen RN) Datetime: 05/28/2016 16:05 Communication Comments: Bernabe Houser CNM at bedside (Shannan Breen RN) Datetime: 05/28/2016 16:00 Monitor Mode: External (Shannan Breen RN) Frequency (min): 1-3 (Shannan Breen RN) Quality: Mild (Shannan Breen RN) Duration (sec): 50-80 (Shannan Breen RN) Resting Tone (Palpate): Relaxed (Shannan Breen RN) Monitor Mode: External US (Shannan Breen RN) FHR Baseline Rate : 130 (Shannan Breen RN) Variability: Moderate 6-25 bpm (Shannan Breen RN) Accelerations: 15X15 (Shannan Breen RN) Decelerations: None (Shannan Breen RN) Pitocin (milliunit): Pitocin Remains (milliunits) @ 20 (Shannan Breen RN) I/O Interventions: Up to BR (Shannan Breen RN) Datetime: 05/28/2016 15:45 Monitor Mode: External (Shannan Breen, RN) Frequency (min): 1-3 (Shannangilda Breen, RN) Quality: Mild (Shannan Jamshid, RN) Duration (sec): 50-80 (Shannangilda Breen, RN) Duration Criteria: Less than Two 120 Second Contractions (Shannangilda Breen, RN) Pattern: Normal: <= 5 Contractions in 10 Minutes (Shannan Jamshid, RN) Resting Tone (Palpate): Relaxed (Shannan Breen, RN) Monitor Mode: External US (Shannan Breen, RN) FHR Baseline Rate : 130 (Shannangilda Breen, RN) Variability: Moderate 6-25 bpm (Shannan Breen, RN) Accelerations: 15X15 (Shannan Breen, RN) Decelerations: None (Shannangilda Breen, RN) Pitocin (milliunit): Pitocin Remains (milliunits) @ 20 (Shannan Jamshid, RN) Datetime: 05/28/2016 15:37 I/O Interventions: Up to BR (Shannan Breen, RN) Datetime: 05/28/2016 15:30 Monitor Mode: External (Shannangilda Breen, RN) Frequency (min): 1-3 (Shannan Breen, RN) Quality: Mild (Shannan Jamshid, RN) Duration (sec): 50-80 (Shannangilda Breen, RN) Resting Tone (Palpate): Relaxed (Shannan Breen, RN) Monitor Mode: External US (Shannan Breen, RN) FHR Baseline Rate : 130 (Shannangilda Breen, RN) Variability: Moderate 6-25 bpm (Shannangilda Breen, RN) Accelerations: 15X15 (Shannangilda Breen, RN) Decelerations: None (Shannan Breen, RN) Pitocin (milliunit): Pitocin Remains (milliunits) @ 20 (Shannan Jamshid, RN) Datetime: 05/28/2016 15:23 IV/Blood Work: New IV Bag Hung (Shannan Jamshid, RN) Datetime: 05/28/2016 15:15 Monitor Mode: External (Shannan Breen, RN) Frequency (min): 1-3 (Shannan Breen, RN) Quality: Mild (Shannan Breen, RN) Duration (sec): 50-80 (Shannan Breen, RN) Resting Tone (Palpate): Relaxed (Shannan Breen, RN) Monitor Mode: External US (Shannan Breen, RN) FHR Baseline Rate : 135 (Shannan Breen, RN) Variability: Moderate 6-25 bpm (Shannan Breen, RN) Accelerations: 15X15 (Shannan Breen, RN) Decelerations: None (Shannan Breen, RN) Pitocin (milliunit): Pitocin Remains (milliunits) @ 20 (Shannan Breen, RN) Datetime: 05/28/2016 15:00 Monitor Mode: External (Shannan Breen, RN) Frequency (min): 1-3 (Shannan Breen, RN) Quality: Mild (Shannan Breen, RN) Duration (sec): 50-80 (Shannan Breen, RN) Resting Tone (Palpate): Relaxed (Shannan Breen, RN) Monitor Mode: External US (Shannan Breen, RN) FHR Baseline Rate : 135 (Shannan Breen, RN) Variability: Moderate 6-25 bpm (Shannan Breen, RN) Accelerations: 15X15 (Shannan Breen, RN) Decelerations: None (Shannan Breen, RN) Pitocin (milliunit): Pitocin Remains (milliunits) @ 20 (Shannan Breen, RN) Datetime: 05/28/2016 14:45 Monitor Mode: External (Shannan Breen RN) Frequency (min): 1-2 (Shannan Breen RN) Quality: Mild (Shannan Breen, RN) Duration (sec): 50-80 (Shannan Breen RN) Resting Tone (Palpate): Relaxed (Shannan Breen RN) Monitor Mode: External US (Shannan Breen RN) FHR Baseline Rate : 125 (Shannan Breen RN) Variability: Moderate 6-25 bpm (Shannan Breen, RN) Accelerations: 15X15 (Shannan Breen, RN) Decelerations: None (Shannan Breen, RN) Pitocin (milliunit): Pitocin Remains (milliunits) @ 20 (Shannan Breen, RN) Datetime: 05/28/2016 14:33 Monitor Interventions for FHR: Ultrasound Adjusted (Shannan Breen RN) Communication: RN at Bedside (Shannan Breen RN) Datetime: 05/28/2016 14:31 Patient Care Comments: Pt sitting on edge of bed (Shannan Breen, RN) Datetime: 05/28/2016 14:30 Monitor Mode: External (Shannan Breen RN) Frequency (min): 1-3 (Shannan Breen RN) Quality: Mild (Shannan Breen, RN) Duration (sec): 50-80 (Shannan Breen, RN) Resting Tone (Palpate): Relaxed (Shannan Breen RN) Monitor Mode: External US (Shannan Breen RN) FHR Baseline Rate : 130 (Shannan Breen RN) Variability: Moderate 6-25 bpm (Shannan Breen, RN) Accelerations: 15X15 (Shannan Breen, RN) Decelerations: None (Shannan Breen, RN) Pitocin (milliunit): Pitocin Remains (milliunits) @ 20 (Shannan Breen RN) Datetime: 05/28/2016 14:19 NBP Sys/Susana/Mean (mmHg): 113 (QS system process) : 71 (QS system process) : 87 (QS system process) Pulse: 96 (QS system process) LaborFlag: Labor (QS system process) Datetime: 05/28/2016 14:15 Monitor Mode: External (Shannan Breen RN) Frequency (min): 1-3 (Shannan Breen RN) Quality: Mild (Shannan Breen RN) Duration (sec): 50-80 (Shannan Breen RN) Resting Tone (Palpate): Relaxed (Shannan Breen RN) Monitor Mode: External US (Shannan Breen RN) FHR Baseline Rate : 135 (Shannan Breen RN) Variability: Moderate 6-25 bpm (Shannan Breen RN) Accelerations: 15X15 (Shannan Breen, RN) Decelerations: None (Shannan Breen, RN) Pitocin (milliunit): Pitocin Remains (milliunits) @ 20 (Shannan Breen RN) Datetime: 05/28/2016 14:05 NBP Sys/Susana/Mean (mmHg): 126 (QS system process) : 76 (QS system process) : 94 (QS system process) Pulse: 96 (QS system process) LaborFlag: Labor (QS system process) Datetime: 05/28/2016 14:01 Patient Position/Activity: Right Lateral (Shannan Breen RN) Datetime: 05/28/2016 14:00 Monitor Mode: External (Shannan Breen RN) Frequency (min): 1-2 (Shannan Breen RN) Quality: Mild (Shannan Breen RN) Duration (sec): 50-80 (Shannan Breen RN) Resting Tone (Palpate): Relaxed (Shannan Breen RN) Monitor Mode: External US (Shannan Breen RN) FHR Baseline Rate : 135 (Shannan Breen RN) Variability: Moderate 6-25 bpm (Shannan Breen RN) Accelerations: 15X15 (Shannan Breen RN) Decelerations: None (Shannan Breen RN) Pitocin (milliunit): Pitocin Remains (milliunits) @ 20 (Shannan Breen RN) Datetime: 05/28/2016 13:49 NBP Sys/Susana/Mean (mmHg): 134 (QS system process) : 67 (QS system process) : 95 (QS system process) Pulse: 98 (QS system process) LaborFlag: Labor (QS system process) Datetime: 05/28/2016 13:45 Monitor Mode: External (Shannan Breen RN) Frequency (min): 1-3 (Shannan Breen RN) Quality: Mild (Shannan Breen RN) Duration (sec): 50-80 (Shannan Breen RN) Resting Tone (Palpate): Relaxed (Shannan Breen RN) Monitor Mode: External US (Shannan Breen RN) FHR Baseline Rate : 135 (Shannan Breen RN) Variability: Moderate 6-25 bpm (Shannan Breen RN) Accelerations: 15X15 (Shannan Breen RN) Decelerations: None (Shannan Breen RN) Pitocin (milliunit): Pitocin Remains (milliunits) @ 20 (Shannan Breen RN) Datetime: 05/28/2016 13:34 NBP Sys/Susana/Mean (mmHg): 126 (QS system process) : 66 (QS system process) : 85 (QS system process) Pulse: 96 (QS system process) LaborFlag: Labor (QS system process) Datetime: 05/28/2016 13:30 Monitor Mode: External (Shannan Breen RN) Frequency (min): 1-3 (Shannan Breen RN) Quality: Mild (Shannan Breen RN) Duration (sec): 50-80 (Shannan Breen RN) Resting Tone (Palpate): Relaxed (Shannan Breen RN) Monitor Mode: External US (Shannan Breen RN) FHR Baseline Rate : 130 (Shannan Breen RN) Variability: Moderate 6-25 bpm (Shannan Breen RN) Accelerations: 15X15 (Shannan Breen RN) Decelerations: None (Shannan Breen RN) Pitocin (milliunit): Pitocin Increased to (milliunits) @ 20 (Shannan Breen RN) Datetime: 05/28/2016 13:27 Patient Position/Activity: Left Lateral (Shannan Breen, RN) Datetime: 05/28/2016 13:26 Comments: tracing maternal HR, adjusted ultrasound (Shannan Breen, RN) Datetime: 05/28/2016 13:20 I/O Interventions: Up to BR (Shannan Breen, RN) Datetime: 05/28/2016 13:15 Monitor Mode: External (Shannan Breen RN) Frequency (min): 1-2 (Shannan Breen, RN) Quality: Mild (Shannan Breen, RN) Duration (sec): 50-80 (Shannan Breen, RN) Resting Tone (Palpate): Relaxed (Shannan Breen, RN) Monitor Mode: External US (Shannan Breen RN) FHR Baseline Rate : 135 (Shannan Breen, RN) Variability: Moderate 6-25 bpm (Shannan Breen, RN) Accelerations: 15X15 (Shannan Breen, RN) Decelerations: None (Shannan Breen, RN) Pitocin (milliunit): Pitocin Increased to (milliunits) @ 18 (Shannan Breen, RN) Datetime: 05/28/2016 13:05 NBP Sys/Susana/Mean (mmHg): 121 (QS system process) : 82 (QS system process) : 95 (QS system process) Pulse: 88 (QS system process) LaborFlag: Labor (QS system process) Datetime: 05/28/2016 13:00 Monitor Mode: External (Shannan Breen, RN) Frequency (min): 1-3 (Shannan Breen RN) Quality: Mild (Shannan Breen, RN) Duration (sec): 50-80 (Shannan Breen, RN) Resting Tone (Palpate): Relaxed (Shannan Breen, RN) Monitor Mode: External US (Shannan Breen, RN) FHR Baseline Rate : 135 (Shannan Breen RN) Variability: Moderate 6-25 bpm (Shannan Breen, RN) Accelerations: 15X15 (Shannan Breen, RN) Decelerations: None (Shannan Breen, RN) Pitocin (milliunit): Pitocin Increased to (milliunits) @ 16 (Shannan Breen, RN) Datetime: 05/28/2016 12:49 NBP Sys/Susana/Mean (mmHg): 127 (QS system process) : 57 (QS system process) : 82 (QS system process) Pulse: 87 (QS system process) LaborFlag: Labor (QS system process) Datetime: 05/28/2016 12:45 Monitor Mode: External (Shannan Breen, RN) Frequency (min): 1-4 (Shannan Breen, RN) Quality: Mild (Shannan Breen, RN) Duration (sec): 50-80 (Shannan Breen, RN) Resting Tone (Palpate): Relaxed (Shannan Breen, RN) Monitor Mode: External US (Shannan Breen, RN) FHR Baseline Rate : 125 (Shannan Breen, RN) Variability: Moderate 6-25 bpm (Shannan Breen, RN) Accelerations: None (Shannan Breen, RN) Decelerations: None (Shannan Breen, RN) Pitocin (milliunit): Pitocin Remains (milliunits) @ 14 (Shannan Breen, RN) Datetime: 05/28/2016 12:33 Monitor Interventions for FHR: Ultrasound Adjusted (Shannan Breen, RN) Datetime: 05/28/2016 12:30 Respirations: 16 (Shannan Breen RN) Temperature (F): 98.0 (Shannan Breen RN) Temperature (C): 36.7 (QS system process) Monitor Mode: External (Shannan Breen RN) Frequency (min): 1-3 (Shannan Breen RN) Quality: Mild (Shannan Breen RN) Duration (sec): 50-80 (Shannan Breen RN) Resting Tone (Palpate): Relaxed (Shannan Breen RN) Monitor Mode: External US (Shannan Breen RN) FHR Baseline Rate : 125 (Shannan Breen RN) Variability: Moderate 6-25 bpm (Shannan Breen RN) Decelerations: None (Shannan Breen RN) Pain Scale: 1 (Shannan Breen RN) Pain Presence: Intermittent (Shannan Breen RN) Pain Type: Contraction (Shannan Breen RN) Pain Location: Abdomen (Shannan Breen RN) Pain Relief Measures: Comfort Measures (Shannan Breen RN) Pain Coping: Talking Through Contractions (Shannan Breen RN) Pitocin (milliunit): Pitocin Remains (milliunits) @ 14 (Shannan Breen RN) LaborFlag: Labor (QS system process) Datetime: 05/28/2016 12:29 Patient Position/Activity: Right Lateral (Shannan Breen RN) Datetime: 05/28/2016 12:19 NBP Sys/Susana/Mean (mmHg): 111 (QS system process) : 69 (QS system process) : 84 (QS system process) Pulse: 94 (QS system process) LaborFlag: Labor (QS system process) Datetime: 05/28/2016 12:15 Monitor Mode: External (Shannan Breen RN) Frequency (min): 1-2 (Shannan Breen RN) Quality: Mild (Shannan Breen RN) Duration (sec): 50-80 (Shannan Breen RN) Resting Tone (Palpate): Relaxed (Shannan Breen RN) Monitor Mode: External US (Shannan Breen RN) FHR Baseline Rate : 135 (Shannan Breen RN) Variability: Moderate 6-25 bpm (Shannan Breen RN) Decelerations: None (Shannan Breen RN) Pitocin (milliunit): Pitocin Increased to (milliunits) @ 14 (Shannan Breen RN) Datetime: 05/28/2016 12:01 Monitor Interventions for UA: [place] Adjusted (Shannan Breen RN) Comfort Measures: Rocking Chair (Shannan Breen RN) Datetime: 05/28/2016 12:00 Monitor Mode: External (Shannan Breen RN) Frequency (min): 1-3 (Shannan Breen RN) Quality: Mild (Shannan Breen RN) Duration (sec): 50-80 (Shannan Breen RN) Resting Tone (Palpate): Relaxed (Shannan Breen RN) Comments: unable to determine due to pt position on birthing ball. RN adjusting monitors (Shannan Breen RN) Pitocin (milliunit): Pitocin Remains (milliunits) @ 12 (Shannan Breen RN) Datetime: 05/28/2016 11:45 Comments: unable to determine due to pt being up in BR and sitting on birthing ball. RN adjusting monitors (Shannan Breen, RN) Pitocin (milliunit): Pitocin Remains (milliunits) @ 12 (Shannan Breen, RN) Datetime: 05/28/2016 11:37 Monitor Interventions for FHR: Ultrasound Adjusted (Shannan Breen, RN) Patient Position/Activity: Birthing Ball (Shannan Breen, RN) Communication: RN at Bedside (Shannan Breen RN) Datetime: 05/28/2016 11:32 I/O Interventions: Up to BR (Shannan Breen, RN) Datetime: 05/28/2016 11:30 Monitor Mode: External (Shannan Breen, RN) Frequency (min): 1-3 (Shannan Breen, RN) Quality: Mild (Shannan Breen, RN) Duration (sec): 50-80 (Shannan Breen, RN) Resting Tone (Palpate): Relaxed (Shannan Breen, RN) Monitor Mode: External US (Shannan Breen, RN) FHR Baseline Rate : 135 (Shannan Breen, RN) Variability: Moderate 6-25 bpm (Shannan Breen, RN) Accelerations: 15X15 (Shannan Breen, RN) Decelerations: None (Shannan Breen, RN) Pitocin (milliunit): Pitocin Increased to (milliunits) @ 12 (Shannan Breen, RN) Datetime: 05/28/2016 11:19 NBP Sys/Susana/Mean (mmHg): 126 (QS system process) : 75 (QS system process) : 94 (QS system process) Pulse: 88 (QS system process) LaborFlag: Labor (QS system process) Datetime: 05/28/2016 11:15 Monitor Mode: External (Shannan Breen, RN) Frequency (min): 1-3 (Shannan Breen, RN) Quality: Mild (Shannan Breen, RN) Duration (sec): 50-80 (Shannan Breen, RN) Resting Tone (Palpate): Relaxed (Shannan Breen, RN) Monitor Mode: External US (Shannan Breen, RN) FHR Baseline Rate : 125 (Shannan Breen, RN) Variability: Moderate 6-25 bpm (Shannan Breen, RN) Accelerations: 15X15 (Shannan Breen, RN) Decelerations: None (Shannan Breen, RN) Pitocin (milliunit): Pitocin Remains (milliunits) @ 10 (Shannan Breen, RN) Datetime: 05/28/2016 11:04 NBP Sys/Susana/Mean (mmHg): 119 (QS system process) : 76 (QS system process) : 92 (QS system process) Pulse: 97 (QS system process) LaborFlag: Labor (QS system process) Datetime: 05/28/2016 11:00 Monitor Mode: External (Shannan Breen, RN) Frequency (min): 1-3 (Shannan Breen RN) Quality: Mild (Shannan Breen RN) Duration (sec): 50-80 (Shannan Breen RN) Duration Criteria: Less than Two 120 Second Contractions (Shannan Breen RN) Pattern: Normal: <= 5 Contractions in 10 Minutes (Shannan Breen RN) Resting Tone (Palpate): Relaxed (Shannan Breen RN) Monitor Mode: External US (Shannan Breen RN) FHR Baseline Rate : 130 (Shannan Breen RN) Variability: Moderate 6-25 bpm (Shannan Breen, RN) Accelerations: 15X15 (Shannan Breen, RN) Decelerations: None (Shannan Breen RN) Pitocin (milliunit): Pitocin Increased to (milliunits) @ 10 (Shannan Breen RN) Datetime: 05/28/2016 10:56 Bedside Blood Glucose: 95 (QS system process) LaborFlag: Labor (QS system process) Datetime: 05/28/2016 10:49 NBP Sys/Susana/Mean (mmHg): 123 (QS system process) : 79 (QS system process) : 95 (QS system process) Pulse: 94 (QS system process) LaborFlag: Labor (QS system process) Datetime: 05/28/2016 10:45 Monitor Mode: External (Shannan Breen, RN) Frequency (min): 1-3 (Shannan Breen RN) Quality: Mild (Shannan Breen RN) Duration (sec): 50-80 (Shannan Breen RN) Resting Tone (Palpate): Relaxed (Shannan Breen RN) Monitor Mode: External US (Shannan Breen RN) FHR Baseline Rate : 135 (Shannan Breen RN) Variability: Moderate 6-25 bpm (Shannan Breen RN) Accelerations: 15X15 (Shannan Breen RN) Decelerations: None (Shannan Breen RN) Pitocin (milliunit): Pitocin Increased to (milliunits) @ 8 (Shannan Breen RN) Datetime: 05/28/2016 10:30 Monitor Mode: External (Shannan Breen RN) Frequency (min): 1-3 (Shannan Breen RN) Quality: Mild (Shannan Breen RN) Duration (sec): 50-80 (Shannan Breen RN) Resting Tone (Palpate): Relaxed (Shannan Breen RN) Monitor Mode: External US (Shannan Breen RN) FHR Baseline Rate : 145 (Shannan Breen RN) Variability: Moderate 6-25 bpm (Shannan Breen RN) Accelerations: 15X15 (Shannan Breen RN) Decelerations: None (Shannan Breen RN) Pitocin (milliunit): Pitocin Increased to (milliunits) @ 6 (Shannan Breen RN) Datetime: 05/28/2016 10:21 Monitor Interventions for FHR: Ultrasound Adjusted (Shannan Breen RN) Patient Position/Activity: Left Lateral (Shannan Breen RN) Datetime: 05/28/2016 10:15 Monitor Mode: External (Shannan Breen RN) Frequency (min): 1-3 (Shannan Breen RN) Quality: Mild (Shannan Breen RN) Duration (sec): 50-80 (Shannan Breen RN) Duration Criteria: Less than Two 120 Second Contractions (Shannan Breen RN) Pattern: Normal: <= 5 Contractions in 10 Minutes (Shannan Breen RN) Resting Tone (Palpate): Relaxed (Shannan Breen RN) Monitor Mode: External US (Shannan Breen RN) FHR Baseline Rate : 135 (Shannan Breen, RN) Variability: Moderate 6-25 bpm (Shannan Breen RN) Accelerations: 15X15 (Shannan Breen RN) Decelerations: None (Shannan Breen RN) Pitocin (milliunit): Pitocin Increased to (milliunits) @ 4 (Shannan Breen RN) Datetime: 05/28/2016 10:00 Monitor Mode: External (Shannan Breen RN) Frequency (min): 1.5-3 (Shannan Breen RN) Quality: Mild (Shannan Breen RN) Duration (sec): 50-80 (Shannan Breen RN) Resting Tone (Palpate): Relaxed (Shannan Breen RN) Monitor Mode: External US (Shannan Breen RN) FHR Baseline Rate : 135 (Shannan Breen RN) Variability: Moderate 6-25 bpm (Shannan Breen, RN) Accelerations: 15X15 (Shannan Breen RN) Decelerations: None (Shannan Breen RN) Pitocin (milliunit): Pitocin Started (milliunits) @ 2; Pitocin 20 Units in 1000ml NS (Shannan Breen RN) Datetime: 05/28/2016 09:51 Communication Comments: Dr Garnett on unit. Orders to start Pitocin and increase q 15 minutes per protocol (Shannan Breen RN) Datetime: 05/28/2016 09:50 NBP Sys/Susana/Mean (mmHg): 117 (QS system process) : 68 (QS system process) : 87 (QS system process) Pulse: 108 (QS system process) Dilatation (cm): 2.5 (Shannan Breen RN) Effacement (%): 50 (Shannan Breen RN) Station: -2 (Shannan Breen RN) Exam by: Jhonathan Breen RN (Shannan Breen RN) LaborFlag: Labor (QS system process) Datetime: 05/28/2016 09:46 Patient Position/Activity: Right Lateral (Shannan Breen, RN) Datetime: 05/28/2016 08:54 Communication Comments: Monitors removed for pt to walk. IV saline locked. (Shannan Breen, RN) Datetime: 05/28/2016 08:30 Monitor Mode: External (Shannan Breen RN) Frequency (min): 1-3 (Shannan Breen RN) Quality: Mild (Shannan Breen RN) Duration (sec): 50-80 (Shannan Breen RN) Resting Tone (Palpate): Relaxed (Shannan Breen RN) Monitor Mode: External US (Shannan Breen RN) FHR Baseline Rate : 135 (Shannan Breen RN) Variability: Moderate 6-25 bpm (Shannan Breen RN) Accelerations: 15X15 (Shannan Breen RN) Decelerations: None (Shannan Breen, RN) Datetime: 05/28/2016 08:28 Patient Care Comments: Meal given (Shannan Breen RN) Datetime: 05/28/2016 08:07 I/O Interventions: Up to BR (Shannan Breen RN) Datetime: 05/28/2016 08:00 Respirations: 14 (Shannan Breen RN) Temperature (F): 98.6 (Shannan Breen RN) Temperature (C): 37.0 (QS system process) Monitor Mode: External (Shannan Breen RN) Frequency (min): 1-3 (Shannan Breen RN) Quality: Mild (Shannan Breen RN) Duration (sec): 50-70 (Shannan Breen RN) Duration Criteria: Less than Two 120 Second Contractions (Shannan Breen RN) Pattern: Normal: <= 5 Contractions in 10 Minutes (Shannan Breen RN) Resting Tone (Palpate): Relaxed (Shannan Breen RN) Monitor Mode: External US (Shannan Breen RN) FHR Baseline Rate : 125 (Shannan Breen RN) Variability: Moderate 6-25 bpm (Shannan Breen RN) Accelerations: 15X15 (Shannan Breen RN) Decelerations: None (Shannan Breen RN) Pain Scale: 2 (Shannan Breen RN) Pain Presence: Intermittent (Shannan Breen RN) Pain Type: Contraction (Shannan Breen RN) Pain Location: Abdomen (Shannan Breen RN) Pain Relief Measures: Comfort Measures (Shannan Breen RN) Pain Coping: Talking Through Contractions (Shannan Breen RN) Level of Consciousness: Fully Conscious (Shannan Breen RN) DTR's/Clonus: DTRs 2+; No Clonus (Shannan Breen RN) Headache: Denies (Shannan Breen RN) Breath Sounds, Left: Clear and Equal (Shannan Breen RN) Breath Sounds, Right: Clear and Equal (Shannan Beren RN) Nausea/Vomiting: Denies (Shannan Breen RN) RUQ Epigastric Pain: Denies (Shannan Breen RN) LaborFlag: Labor (QS system process) Datetime: 05/28/2016 07:49 LaborFlag: Labor (QS system process) Datetime: 05/28/2016 07:30 Monitor Mode: External (Shannan Breen RN) Frequency (min): 1-2 (Shannan Breen RN) Quality: Mild (Shannan Breen RN) Duration (sec): 50-70 (Shannan Breen RN) Resting Tone (Palpate): Relaxed (Shannan Breen RN) Monitor Mode: External US (Shannan Breen RN) FHR Baseline Rate : 135 (Shannan Breen RN) Variability: Moderate 6-25 bpm (Shannan Breen RN) Accelerations: 15X15 (Shannan Breen RN) Decelerations: None (Shannan Breen RN)
[2016-05-28] MEDS ORDERED: DIPHENHYDRAMINE HCL 50 MG/ML VIAL ONE (23:17)
[2016-05-29] MEDS ORDERED: PROMETHAZINE HCL INJ 25 MG/1 ML VIAL IV PRN (01:34)
[2016-05-29] MEDS ORDERED: PROMETHAZINE HCL 25 MG TABLET PO PRN (01:34)
[2016-05-29] MEDS ORDERED: NA PHOS,M-B/NA PHOS,DI-BA (ADULT) 133 ML ENEMA PR PRN (01:34)
[2016-05-29] MEDS ORDERED: PROMETHAZINE HCL 25 MG SUPP.RECT PR PRN (01:34)
[2016-05-29] MEDS ORDERED: PSEUDOEPHEDRINE HCL 30 MG TABLET PO PRN (01:34)
[2016-05-29] MEDS ORDERED: MEASLES,MUMPS&RUBELLA VACC/PF 0.5 ML VIAL SUBCUT PRN (01:34)
[2016-05-29] MEDS ORDERED: MAGNESIUM HYDROXIDE SUSP 30 ML UDCUP PO PRN (01:34)
[2016-05-29] MEDS ORDERED: DIPHENHYDRAMINE HCL 25 MG CAPSULE PO PRN (01:34)
[2016-05-29] MEDS ORDERED: DIBUCAINE 1% OINTMENT 28 GM TP PRN (01:34)
[2016-05-29] MEDS ORDERED: ACETAMINOPHEN 650 MG SUPP.RECT PR PRN (01:34)
[2016-05-29] MEDS ORDERED: BENZOCAINE/MENTHOL AEROSOL SPRAY 56 ML TOP PRN (01:34)
[2016-05-29] MEDS ORDERED: OXYTOCIN/NORMAL SALINE 1,000 ML IV PRN (01:34)
[2016-05-29] MEDS ORDERED: ZOLPIDEM TARTRATE 5 MG TABLET PO PRN (01:34)
[2016-05-29] MEDS ORDERED: GLYCERIN/WITCH HAZEL LEAF 1 EACH MED..PAD TP PRN (01:34)
[2016-05-29] MEDS ORDERED: ACETAMINOPHEN WITH CODEINE #3 TABLET PO PRN ×2 (01:34)
[2016-05-29] MEDS ORDERED: DIPH/PERTUSS(ACELL)/TETANUS VAC/PF 0.5 ML SYR (>=10YO) IM PRN (01:34)
--- NOTE | 2016-05-29 02:05 | Delivery Summary ---
Del Sum A-C Datetime Report Generated by CPN: 05/29/2016 02:05 ADMISSION DATA Chief Complaint: Scheduled Induction of Labor Indication for Induction: Not Applicable; Maternal Diabetes Admission Impression: Term, Intrauterine DELIVERY PERSONNEL Nurse Money Room Supervisor Certified:: Makayla Leon CNNely Labor and Delivery Nurse:: Berenice Prakash classification clerk Nurse:: Claudia Willoughby RN Additional Personnel: : Brad Margaret, LINOLEUM PRINTER MATERNAL INFORMATION Delivery Anesthesia: Epidural Estimated Blood Loss (ml): 250 Maternal Complications: Other Other Maternal Complications: GDM, poly Provider Comments: of viable male in vertex OA to MAGGY under epidural anesthesia at 0101. Nuchal cord x1 reduced prior to delivery of shoulders. Bulb suctioned mouth and nose. Spontaneous respirations and cry. Apgars 8-9. 3 vessel cord. Cord clamped x2, after 3 min delay, then cut by FOB. Placenta, membranes, and cord expelled at 0105, Lew presentation. Small tear in right periurethra stitched a noted above. Patient tolerated the procedure well. LABOR SUMMARY EDC: 05/25/2016 00:00 No. Babies in Womb: 1 Labor Anesthesia: Epidural LABOR INFORMATION Reason for Induction: Maternal Diabetes Onset of Labor: 05/28/2016 18:39 Complete Dilatation: 05/29/2016 00:50 Cervical Ripening Agents: Cytotec @ Other Ripening Agents: Cytotec Oxytocin: Induction Group B Beta Strep: negative Steroids Given: None Reason Steroids Not Administered: Not Applicable MEMBRANES Membranes Rupture Method: Artificial Rupture of Membranes: 05/28/2016 16:07 Length of Rupture (hr): 8.90 Amniotic Fluid Color: Clear Amniotic Fluid Amount: Large Amniotic Fluid Odor: Normal STAGES OF LABOR Stage 1 hr: 6 Stage 1 min: 11 Stage 2 hr: 0 Stage 2 min: 11 Stage 3 hr: 0 Stage 3 min: 6 Total Time in Labor hr: 6 Total Time in Labor min: 28 VAGINAL DELIVERY Episiotomy: None Laceration Extension: N/A Laceration Type: Periurethral Laceration Repair: Yes Laceration Repair Note: 2 interrupted stitches in left periurethral area using 3-0 Chromic Sponge Count Correct: N/A Sharps Count Correct: Yes CSECTION DELIVERY CSection Incision: N/A BABY A INFORMATION Infant Delivery Date/Time: 05/29/2016 01:01 Method of Delivery: Vaginal Born in Route : No : N/A PRESENTATION/POSITION BABY A Presentation: Cephalic Cephalic Presentation: Vertex Vertex Position: Left Occipital Anterior Breech Presentation: N/A PLACENTA INFORMATION BABY A Placenta Delivery Time : 05/29/2016 01:07 Placenta Method of Delivery: Spontaneous Placenta Status: Delivered SCORES BABY A Heart Rate 1 min: >100 bpm Resp Effort 1 min: Slow, Irregular Reflex Irritability 1 min: Cough or Sneeze or Pulls Away Muscle Tone 1 min: Active Motion Color 1 min: Body [place], Extremities Blue SCORE 1 MIN: 8 Heart Rate 5 min: >100 bpm Resp Effort 5 min: Good Cry Reflex Irritability 5 min: Cough or Sneeze or Pulls Away Muscle Tone 5 min: Active Motion Color 5 min: Body [place], Extremities Blue SCORE 5 MIN: 9 INFORMATION BABY A Gestational Age at Delivery: 40.4 Gestational Status: Full Term- 39- 40.6 Weeks Outcome : Liveborn Condition : Stable Infant Sex: Male IDENTIFICATION BABY A Infant Verification Date/Time: 05/29/2016 01:12 ID Band Number: [id number] Mother's Name Verified: Yes RN Verifying : R Case, RNC Additional Verifying Personnel: J Field, RN WEIGHT/LENGTH BABY A Infant Birthweight (gm): 3485 Weight (lb): 7 Weight (oz): 11 Length (in): 20.00 Length (cm): 50.80 CORD INFORMATION BABY A No. Cord Vessels: 3 Nuchal Cord : Around Neck x1, Loose Cord Blood Taken: Yes-For Storage (Mom's Blood type +) ASSESSMENT BABY A Infant Complications: None Physical Findings at Delivery: Within Normal Limits Respirations: Appears Normal Skin to Skin: Yes Skin to Skin Time (min): 15 Care By: Nick Prakash RN Transferred To: Remains with Mother SIGNATURES Assignment: Mervin Garnett DO Signature: with User ID: [email or web address] : with User ID: [email or web address] : I personally evaluated and examined the patient in conjunction with the MLP and agree with the assessment, treatment plan and disposition.
--- NOTE | 2016-05-29 03:13 | Admission Physical ---
Datetime Report Generated by CPN: 05/29/2016 03:12 CURRENT ADMISSION Chief Complaint: Scheduled Induction of Labor Indication for Induction: Not Applicable; Maternal Diabetes Admit Plan: Admit to Unit; Initiate Labor Induction Protocol ALLERGIES Medication Allergies: Yes Medication Allergies: penicillin G (05/28/2016) Medication Allergies: Penicillin Medication Allergies: Penicillin Latex: No Latex Allergies OBSTETRICAL HISTORY EDC: 05/25/2016 00:00 : 2 Para: 1 Term: 1 : 0 SAB: 0 IAB: 0 Livin Gestational Diabetes: Yes Rh Sensitization: No Incompetent Cervix: No NISH: No Infertility: No ART Treatment: No Uterine Anomaly: No IUGR: No Hx Previous C/S: No Macrosomia: No Hx Loss/Stillborn: No PIH: No Hx : No Placenta Previa/Abruption: No Depression/PP Depression: No PTL/PROM: No Post Hemorrhage: No Current Procedures: Ultrasound Obstetrical History Comments: 2012 42 weeks baby girl 2016 current SEE RECORDS Alcohol: No Marijuana : No Cocaine: No Other Illicit Drugs: No Cigarettes: Never Smoker. [id number] MEDICAL HISTORY Diabetes: No Diabetes Type: Gestational Diabetes Blood Transfusion: No Pulmonary Disease (Asthma, TB): No Breast Disease: No Hypertension: No Clinic Administrator Surgery: No Heart Disease: No Hosp/Surgery: No Autoimmune Disorder: No Anesthetic Complications: No Kidney Disease: No Abnormal Pap Smear: No Neuro/Epilepsy: No Psychiatric Disorders: No Other Medical Diseases: No Hepatitis/Liver Disease: No Significant Family History: No Varicosities/Phlebitis: No Trauma/Violence : No Thyroid Dysfunction: No INFECTIOUS HISTORY Gonorrhea: No Genital Herpes: No Chlamydia: No Tuberculosis: No Syphilis: No Hepatitis: No HIV/AIDS Exposure: No Rash or Viral Illness: No HPV: No PHYSICAL EXAM General: Normal HEENT: Normal Neurologic: Normal Thyroid: Normal Heart: Normal Lungs: Normal Breast: Normal Back: Normal Abdomen: Normal Genitourinary Exam: Normal Extremities: Normal DTRs: Normal Pelvic Type: Adequate Vital Signs: Reviewed VAGINAL EXAM Dilatation: 2 Dilatation: 2 Effacement: 60 Effacement: 50 Station: -2 Station: -3 MEMBRANES Pooling: Negative Membranes: Ruptured Membranes: Intact Amniotic Fluid Color: Clear FETUS A Monitoring: External US FHR- Baseline: 140 Variability: Moderate 6-25bpm Accelerations: 15X15 Decelerations: None FHR Category: Category I Estimated Weight (gm): 4000 Presentation: Vertex PLANS FOR LABOR AND DELIVERY Labor and Delivery: None Pain Management: Epidural Feeding Preference: Both Benefit of Breast Feed Discussed: Yes Circumcision: Yes INFORMED CONSENT Signature: with User ID: [email or web address] : I personally evaluated and examined the patient in conjunction with the MLP and agree with the assessment, treatment plan and disposition. : I personally evaluated and examined the patient in conjunction with the MLP and agree with the assessment, treatment plan and disposition.
[2016-05-29] MEDS ORDERED: IBUPROFEN 800 MG TABLET PO SCH (06:00)
[2016-05-29] MEDS ORDERED: FERROUS SULFATE 325 MG TABLET PO SCH (08:00)
[2016-05-29] MEDS ORDERED: DOCUSATE SODIUM 100 MG CAPSULE PO SCH (10:00)
[2016-05-29] MEDS ORDERED: SENNOSIDES/DOCUSATE 8.6-50 MG 1 EACH TABLET PO SCH (10:00)
[2016-05-29] MEDS ORDERED: PRENATAL VITAMIN W-O CA NO5/FE FUMARATE/FA CAPSULE PO SCH (10:00)
[2016-05-29] MEDS: FAMOTIDINE 20 MG TABLET PO SCH ×2 (10:04→21:00)
[2016-05-29 15:54] LABS: HEMATOCRIT 29.3 % (36.0-47.0); HEMOGLOBIN 9.5 g/dL (12.0-15.5); HGB HCT DIFFERENCE -0.8; MEAN CORPUSCULAR HEMOGLOBIN 26.9 pg (27.0-33.4); MEAN CORPUSCULAR HGB CONC 32.4 g/dL (32.0-36.0); MEAN CORPUSCULAR VOLUME 83 fl (80-97); RED BLOOD COUNT 3.53 10^6/uL (3.72-5.28); RED CELL DISTRIBUTION WIDTH 16.3 % (11.5-14.0); WHITE BLOOD COUNT 11.3 10^3/uL (4.0-10.5)
[2016-05-30] MEDS ORDERED: DIPHENHYDRAMINE HCL 25 MG CAPSULE PO PRN (01:30)
[2016-05-30] MEDS ORDERED: DIBUCAINE 1% OINTMENT 28 GM PR PRN (01:31)
[2016-05-30] MEDS ORDERED: BENZOCAINE/MENTHOL AEROSOL SPRAY 56 ML TOP PRN (01:31)
[2016-05-30] MEDS ORDERED: ACETAMINOPHEN WITH CODEINE #3 TABLET PO PRN ×2 (01:32)
[2016-05-30] MEDS: IBUPROFEN 800 MG TABLET PO SCH ×2 (05:56→13:12)
[2016-05-30] MEDS ORDERED: FERROUS SULFATE 325 MG TABLET PO SCH (08:00)
--- NOTE | 2016-05-30 08:33 | PDOC PROGRESS REPORT ---
Subjective-OB Subjective: Post Delivery Day: 1 23 year old. Denies any needs at this time,, states lochia is stable, voiding without difficulty, pain well controlled, passing gas. Physical Exam (OB) Vital Signs: Temp Pulse Resp BP Pulse Ox 98.3 F 90 18 121/65 99 05/29/16 19:41 05/29/16 19:41 05/29/16 19:41 05/29/16 19:41 05/29/16 19:41 Intake & Output 05/29/16 05/30/16 05/31/16 06:59 06:59 06:59 Intake Total 900 Balance 900 - Lochia Lochia Amount: Scant < 10 ml Lochia Color: Rubra/Red, Serosa/Brown - Abdomen Description: Tender Hernia Present: No Fundal Description: Firm Fundal Height: u/u - u/2 Objective-Diagnostic Laboratory: 05/29/16 15:30 05/29/16 15:30 WBC 11.3 H RBC 3.53 L Hgb 9.5 L Hct 29.3 L MCV 83 MCH 26.9 L MCHC 32.4 RDW 16.3 H Plt Count 127 L Assessment and Plan(PN) - Assessment and Plan (1) Acute blood loss anemia Is this a current diagnosis for this admission?: YesPlan: ferrous sulfate increase dietary iron (2) Normal vaginal delivery Is this a current diagnosis for this admission?: YesPlan: routine pp care - Time Spent with Patient Time with patient: Less than 15 minutes Critical Time spent with patient: Less than 15 minutes Medications reviewed and adjusted accordingly: Yes - Disposition Anticipated Discharge: Home Within: within 24 hours
[2016-05-30 08:50] VITALS: BP 100/65
--- NOTE | 2016-05-30 09:17 | PDOC DISCHARGE SUMMARY ---
Final Diagnosis Discharge Date: 05/30/16 - Final Diagnosis (1) Acute blood loss anemia Is this a current diagnosis for this admission?: Yes (2) Normal vaginal delivery Is this a current diagnosis for this admission?: Yes Discharge Data - Discharge Medication Home Medications: Pnv No.122/Iron/Folic Acid [ Multi Tablet] 1 tab PO DAILY 01/18/15 Docusate Sodium [Colace 100 mg Capsule] 100 mg PO BID #60 capsule 05/30/16 Ferrous Sulfate [Feosol 325 mg Tablet] 325 mg PO BIDACBS #60 tablet 05/30/16 Ibuprofen [Motrin 800 mg Tablet] 800 mg PO Q8 #30 tablet 05/30/16 Gestational Age: 40.4 Reason(s) for Admission: Induction of Labor, Gestional Diabetes Procedures: NST Intrapartum Procedure(s): Spontaneous Vaginal Delivery - Data Baby 1 Male at 1 minute: 8 at 5 minutes: 9 Weight: 3485 kg Home with Mother: Yes Complications: No - Diagnosis Test Laboratory: Temp Pulse Resp BP Pulse Ox 97.9 F 89 17 100/65 100 05/30/16 07:53 05/30/16 07:53 05/30/16 07:53 05/30/16 07:53 05/30/16 07:53 05/27/16 05/27/16 05/29/16 23:26 23:42 15:30 RBC 3.89 3.53 L Hgb 10.6 L 9.5 L Hct 32.2 L 29.3 L Urine Opiates Screen NEGATIVE - Discharge information/Instructions Discharge Activity: Activity As Tolerated, Pelvic Rest, No tub bath Discharge Diet: Regular Disposition: HOME, SELF-CARE Follow up with: [facility] in: 4, Weeks
[2016-05-30] MEDS: FAMOTIDINE 20 MG TABLET PO SCH (09:20)
[2016-05-30] MEDS ORDERED: SENNOSIDES/DOCUSATE 8.6-50 MG 1 EACH TABLET PO SCH (10:00)
[2016-05-30] MEDS ORDERED: DOCUSATE SODIUM 100 MG CAPSULE PO SCH (10:00)
[2016-05-30] MEDS ORDERED: PRENATAL VITAMIN W-O CA NO5/FE FUMARATE/FA CAPSULE PO SCH (10:00)
== END 2016-05-30 15:05 | disposition home or self-care (01) | DRG 775 ==
LOC: LR 23:15 → 2S 05-29 03:11
PROVIDERS: ADMIT Obstetrics & Gynecology; ATTEND Obstetrics & Gynecology
PROC: 4A1HXCZ Monitoring of Products of Conception, Cardiac Rate, External Approach (ICD-10-PCS; 2016-05-27)
PROC: 3E0P7GC Introduction of Other Therapeutic Substance into Female Reproductive, Via Natural or Artificial Opening (ICD-10-PCS; 2016-05-28)
PROC: 10907ZC Drainage of Amniotic Fluid, Therapeutic from Products of Conception, Via Natural or Artificial Opening (ICD-10-PCS; 2016-05-28)
PROC: 10E0XZZ Delivery of Products of Conception, External Approach (ICD-10-PCS; principal; 2016-05-29)
PROC: 0UQMXZZ Repair Vulva, External Approach (ICD-10-PCS; 2016-05-29)
DX: O24.429 Gestational diabetes mellitus in childbirth, unspecified control (principal); O40.3XX0 Polyhydramnios, third trimester, not applicable or unspecified; O71.82 Other specified trauma to perineum and vulva; O69.81X0 Labor and delivery complicated by cord around neck, without compression, not applicable or unspecified; O99.02 Anemia complicating childbirth; D64.9 Anemia, unspecified; Z88.0 Allergy status to penicillin; Z3A.40 40 weeks gestation of pregnancy; Z37.0 Single live birth
CPT/HCPCS: 36415; 80307; 81005; 82962; 85025; 85027; 86592; 86850; 86900; 86901; 88307; J1200; J2590; J3490

== ENCOUNTER 2016-10-06 05:48 | Emergency (ER) | payer MEDICAID ==
[2016-10-06] MEDS ORDERED: KETOROLAC TROMETHAMINE INJ/PF 30 MG/1 ML SDV IV ONE (06:26)
[2016-10-06] MEDS ORDERED: NORMAL SALINE 1000 ML 1,000 ML IV PRN (06:26)
[2016-10-06] MEDS ORDERED: ONDANSETRON HCL INJ/PF 4 MG/2 ML SDV IV ONE (06:26)
--- NOTE | 2016-10-06 06:39 | ER Document Report ---
ED General - General Chief Complaint: Nausea/Vomiting Stated Complaint: VOMITING Time Seen by Provider: 10/06/16 06:21 TRAVEL OUTSIDE OF THE [place] IN LAST 30 DAYS: No - HPI Patient complains to provider of: Nausea vomiting Notes: Patient coming in for nausea vomiting abdominal cramping. Patient is currently on her menstrual cycle. Patient states she is 4 months . Patient is actively vomiting upon my entrance into examination room. states patient had pizza sausage along with light snacks throughout the night. Denies any recent travel denies any recent trauma denies any sick contacts denies fevers chills chest pain - Related Data Allergies/Adverse Reactions: penicillin G Allergy (Verified 10/06/16 06:23) Past Medical History - Social History Smoking Status: Never Smoker Frequency of alcohol use: None Drug Abuse: None Family History: Reviewed & Not Pertinent Patient has suicidal ideation: No Patient has homicidal ideation: No Renal/ Medical History: Denies: Hx Peritoneal Dialysis Surgical Hx: Negative - Immunizations Immunizations up to date: Yes Hx Diphtheria, Pertussis, Tetanus Vaccination: Yes Review of Systems - Review of Systems Constitutional: No symptoms reported EENT: No symptoms reported Cardiovascular: No symptoms reported Respiratory: No symptoms reported Gastrointestinal: Abdominal pain, Nausea, Vomiting Genitourinary: No symptoms reported Female Genitourinary: No symptoms reported Musculoskeletal: No symptoms reported Skin: No symptoms reported Hematologic/Lymphatic: No symptoms reported Neurological/Psychological: No symptoms reported -: Yes All other systems reviewed and negative Physical Exam - Vital signs Vitals: Temp Pulse Resp BP Pulse Ox 98.5 F 120 H 19 137/84 H 99 10/06/16 05:51 10/06/16 05:51 10/06/16 05:51 10/06/16 05:51 10/06/16 05:51 Interpretation: Normal - General General appearance: Appears well, Alert - HEENT Head: Normocephalic, Atraumatic Eyes: Normal Pupils: PERRL - Respiratory Respiratory status: No respiratory distress Chest status: Nontender Breath sounds: Normal Chest palpation: Normal - Cardiovascular Rhythm: Regular Heart sounds: Normal auscultation Murmur: No - Abdominal Inspection: Normal Distension: No distension Bowel sounds: Normal Tenderness: Nontender Organomegaly: No organomegaly - Back Back: Normal, Nontender - Extremities General upper extremity: Normal inspection, Nontender, Normal color, Normal ROM , Normal temperature General lower extremity: Normal inspection, Nontender, Normal color, Normal ROM , Normal temperature, Normal weight bearing. No: Anna's sign - Neurological Neuro grossly intact: Yes Cognition: Normal Orientation: AAOx4 Mickey Coma Scale Eye Opening: Spontaneous Mickey Coma Scale Verbal: Oriented Mickey Coma Scale Motor: Obeys Commands Hawi Coma Scale Total: 15 Speech: Normal Motor strength normal: LUE, RUE, LLE, RLE Sensory: Normal - Psychological Associated symptoms: Normal affect, Normal mood - Skin Skin Temperature: Warm Skin Moisture: Dry Skin Color: Normal Course - Vital Signs Vital signs: Temp Pulse Resp BP Pulse Ox 98.5 F 120 H 19 137/84 H 99 10/06/16 05:51 10/06/16 05:51 10/06/16 05:51 10/06/16 05:51 10/06/16 05:51 - Laboratory Result Diagrams: 10/06/16 06:50 10/06/16 06:50 Laboratory results interpreted by me: 10/06/16 10/06/16 06:50 06:50 Hgb 11.7 L Hct 35.9 L MCH 26.7 L RDW 15.3 H Seg Neutrophils % 90.4 H Lymphocytes % 5.1 L Absolute Lymphocytes 0.3 L Glucose 142 H Discharge - Discharge Clinical Impression: Nausea & vomiting Qualifiers: Vomiting type: unspecified Vomiting Intractability: unspecified Qualified Code( s): R11.2 - Nausea with vomiting, unspecified Condition: Good Disposition: HOME, SELF-CARE Instructions: Vomiting ([facility]), Gastroenteritis (adult) ([facility]) Additional Instructions: Take medication as prescribed. Return to ER symptoms worsen. Follow-up with your primary care physician. Prescriptions: Ondansetron [Zofran Odt 4 mg Tablet] 1 - 2 tab PO Q4H PRN #30 tab.rapdis PRN Reason: For Nausea/Vomiting Forms: Return to Work Referrals: ARTEM CORDERO MD [Primary Care Provider] - Follow up in 3-5 days
[2016-10-06 06:59] LABS: ABSOLUTE LYMPHOCYTES (AUTO) 0.3 10^3/uL (0.5-4.7); ABSOLUTE MONOCYTES (AUTO) 0.2 10^3/uL (0.1-1.4); ABSOLUTE NEUT (AUTO) 5.1 10^3/uL (1.7-8.2); BASOPHILS % (AUTO) 0.2 % (0-2); EOSINOPHILS % (AUTO) 0.3 % (0-6); HEMATOCRIT 35.9 % (36.0-47.0); HEMOGLOBIN 11.7 g/dL (12.0-15.5); HGB HCT DIFFERENCE -0.8; LYMPHOCYTES % (AUTO) 5.1 % (13-45); MEAN CORPUSCULAR HEMOGLOBIN 26.7 pg (27.0-33.4); MEAN CORPUSCULAR HGB CONC 32.7 g/dL (32.0-36.0); MEAN CORPUSCULAR VOLUME 82 fl (80-97); RED BLOOD COUNT 4.39 10^6/uL (3.72-5.28); RED CELL DISTRIBUTION WIDTH 15.3 % (11.5-14.0); SEGMENTED NEUTROPHILS % (AUTO) 90.4 % (42-78); WHITE BLOOD COUNT 5.7 10^3/uL (4.0-10.5)
[2016-10-06 07:11] LABS: ALANINE AMINOTRANSFERASE 28 U/L (9-52); ALBUMIN 4.4 g/dL (3.5-5.0); ALKALINE PHOSPHATASE 91 U/L (38-126); ANION GAP 11 (5-19); ASPARTATE AMINO TRANSFERASE 32 U/L (14-36); BILIRUBIN,DIRECT 0.3 mg/dL (0.0-0.4); BILIRUBIN,TOTAL 0.7 mg/dL (0.2-1.3); BLOOD UREA NITROGEN 14 mg/dL (7-20); CARBON DIOXIDE 27 mmol/L (22-30); CHLORIDE 103 mmol/L (98-107); CREATININE RESULT 0.62 mg/dL (0.52-1.25); GLUCOSE 142 mg/dL (75-110); LIPASE 66.1 U/L (23-300); POTASSIUM 3.8 mmol/L (3.6-5.0); SODIUM 140.8 mmol/L (137-145); TOTAL PROTEIN 8.1 g/dL (6.3-8.2)
[2016-10-06] MEDS ORDERED: ONDANSETRON ODT 4 MG TAB (6 TAB/DSPK) PO PRN (08:12)
[2016-10-06 08:36] VITALS: BP 116/70
== END 2016-10-06 08:38 | disposition home or self-care (01) ==
LOC: ER 05:48
DX: R11.2 Nausea with vomiting, unspecified (principal); R10.9 Unspecified abdominal pain; Z88.0 Allergy status to penicillin
CPT/HCPCS: 99283; 96361; 96374; 96375; 36415; 84702; 83690; 85025; 80053; J1885; J2405; J7030

== ENCOUNTER 2016-12-25 22:43 | Emergency (ER) | payer MEDICAID ==
[2016-12-25 23:03] VITALS: BP 121/94
--- NOTE | 2016-12-26 00:14 | ER Document Report ---
HPI - HPI Pain Level: 2 Notes: Patient is a 26-year-old female who presents to the ED complaining of a continued rash over the last month to her extremities and a few areas on her trunk. Patient states that the lesions are annular and her PCM possibly thought that it could have been Lyme's disease, but patient has not been exposed any tick bites or been out in the kitchen at all. She denies any fevers or joint pains. Patient states that aside from itching she is otherwise asymptomatic. She still eating and drink without any difficulties. She is not taking any daily p.o. medications. Denies any exposure to new chemicals or detergents or soaps. Denies any insect bites. Denies any recent illness. Denies any headache, fever, URI, sore throat, chest pain, palpitations, syncope , cough, shortness of breath, wheeze, dyspnea, abdominal pain, nausea/vomiting/ diarrhea, urinary retention, dysuria, hematuria, joint pains. - ROS Notes: REVIEW OF SYSTEMS: CONSTITUTIONAL : Denies fever, chills, or sweats. Denies recent illness. EENT: Denies eye, ear, throat, or mouth pain or symptoms. Denies nasal or sinus congestion or discharge. Denies throat, tongue, or mouth swelling or difficulty swallowing. CARDIOVASCULAR: Denies chest pain. Denies palpitations or racing or irregular heart beat. Denies ankle edema. RESPIRATORY: Denies cough, cold, or chest congestion. Denies shortness of breath, difficulty breathing, or wheezing. GASTROINTESTINAL: Denies abdominal pain or distention. Denies nausea, vomiting , or diarrhea. Denies blood in vomitus, stools, or per rectum. Denies black, tarry stools. Denies constipation. GENITOURINARY: Denies difficulty urinating, painful urination, burning, frequency, blood in urine, or discharge. MUSCULOSKELETAL: Denies back or neck pain or stiffness. Denies joint pain or swelling. SKIN: see hpi NEUROLOGICAL: Denies confusion or altered mental status. Denies passing out or loss of consciousness. Denies dizziness or lightheadedness. Denies headache. Denies weakness or paralysis or loss of use of either side. Denies problems with gait or speech. Denies sensory loss, numbness, or tingling. ALL OTHER SYSTEMS REVIEWED AND NEGATIVE. Dictation was performed using [email or web address] voice recognition software - CARDIOVASCULAR Cardiovascular: DENIES: Chest pain - REPRODUCTIVE Reproductive: DENIES: : - DERM Skin Color: Normal, [place], Other Past Medical History - Social History Smoking Status: Never Smoker Family History: Reviewed & Not Pertinent Patient has suicidal ideation: No Patient has homicidal ideation: No Renal/ Medical History: Denies: Hx Peritoneal Dialysis Surgical Hx: Negative - Immunizations Immunizations up to date: Yes Hx Diphtheria, Pertussis, Tetanus Vaccination: Yes Vertical Provider Document - CONSTITUTIONAL Agree With Documented VS: Yes Notes: PHYSICAL EXAMINATION: GENERAL: Well-appearing, well-nourished and in no acute distress. HEAD: Atraumatic, normocephalic. EYES: Pupils equal round and reactive to light, extraocular movements intact, sclera anicteric, conjunctiva are normal. ENT: Nares patent and without discharge. oropharynx clear without exudates. No tonsilar hypertrophy or erythema. Moist mucous membranes. No sinus tenderness. NECK: Normal range of motion, supple without lymphadenopathy LUNGS: Breath sounds clear to auscultation bilaterally and equal. No wheezes rales or rhonchi. HEART: Regular rate and rhythm without murmurs, rubs, gallops. Musculoskeletal: FROM to passive/active. Strength 5+/5. Extremities: No cyanosis, clubbing, or edema b/l. Peripheral pulses 2+. Capillary refill less than 3 seconds. NEUROLOGICAL: Normal speech, normal gait. Normal sensory, motor exams PSYCH: Normal mood, normal affect. SKIN: dry, annular type lesions with occ scale. Non-tender. resembles herald patch(es) to trunk/extremities with small maculopapular clusters noted as well. - INFECTION CONTROL TRAVEL OUTSIDE OF THE [place] IN LAST 30 DAYS: No - RESPIRATORY O2 Sat by Pulse Oximetry: 100 Course - Re-evaluation Re-evalutation: 12/26/16 00:12 Patient is an afebrile, well-hydrated, 26-year-old female who presents the ED with a pruritic rash, I suspect that this is pityriasis. Vitals are stable. PE is otherwise unremarkable. Her clinical picture does not match that of Lyme disease nor shingles as she has been treated for by her PCM over this last month. Low suspicion for any systemic emergent condition or rash at this time. I will send her home with a prescription for triamcinolone that she may utilize to help with the pruritus. Conservative measures otherwise for symptoms. Recheck with your PCM in 3-5 days. Consider consult with dermatology. Return to the ED with any worsening/concerning symptoms otherwise as reviewed in discharge. Patient is in agreement. - Vital Signs Vital signs: Temp Pulse Resp BP Pulse Ox 97.9 F 85 14 121/94 H 100 12/25/16 23:00 12/25/16 23:00 12/25/16 23:00 12/25/16 23:00 12/25/16 23:00 Discharge - Discharge Clinical Impression: Pruritic rash, Other and unspecified pityriasis Condition: Stable Disposition: HOME, SELF-CARE Instructions: Pityriasis Rosea ([facility]), Topical Steroid Cream or Ointment ([facility]) Additional Instructions: Keep the skin clean and dry Use steroid cream as directed Use a triple antibiotic ointment if any break in the skin Monitor for any worsening symptoms Recheck with your PCM in 3-5 days Consider consult dermatology Return to the ED with any worsening symptoms and/or development of fever, headache, chest pain, palpitations, syncope, shortness of breath, trouble breathing, abdominal pain, n/v/d, blood in stool/urine, loss of control of bowel /bladder, urinary retention, muscle weakness/paralysis, joint pains, numbness/ tingling, or other worsening symptoms that are concerning to you. Prescriptions: Triamcinolone Acetonide [Aristocort 0.5% Cream 15 gm] 1 applic TP BID #1 tube Forms: Elevated Blood Pressure Referrals: ABDOUL GUADALUPE MD [Primary Care Provider] - Follow up as needed ARTEM CORDERO MD [ACTIVE STAFF] - Follow up in 3-5 days MICHELLE HUGHES DO [ACTIVE STAFF] - Follow up as needed
== END 2016-12-26 00:45 | disposition home or self-care (01) ==
LOC: ER 22:43
DX: L21.0 Seborrhea capitis (principal)
CPT/HCPCS: 99283

== ENCOUNTER 2017-07-31 08:54 | Emergency (ER) | payer SELFPAY ==
[2017-07-31 09:02] VITALS: BP 144/73
--- NOTE | 2017-07-31 09:22 | ER Document Report ---
HPI - HPI Patient complains to provider of: skin rash Onset: Other - 2 days Onset/Duration: Persistent Quality of pain: No pain Pain Level: Denies Context: Patient with skin rash to bilateral forearm area. Patient denies any new foods , medications or detergents. Patient denies any recent new exposures. Patient does acknowledge a history of eczema. Exacerbated by: Denies Relieved by: Denies Similar symptoms previously: No Recently seen / treated by doctor: No - ROS ROS below otherwise negative: Yes Systems Reviewed and Negative: Yes All other systems reviewed and negative - CONSTITUTIONAL Constitutional: DENIES: Fever, Chills - CARDIOVASCULAR Cardiovascular: DENIES: Chest pain - RESPIRATORY Respiratory: DENIES: Coughing - GASTROINTESTINAL Gastrointestinal: DENIES: Patient vomiting - REPRODUCTIVE LMP: 07/30/2017 Reproductive: DENIES: : - DERM Skin Problems: Rash Past Medical History - General Information source: Patient - Social History Smoking Status: Never Smoker Chew tobacco use (# tins/day): No Drug Abuse: None Occupation: [employer] Lives with: Family Family History: Reviewed & Not Pertinent Patient has suicidal ideation: No Patient has homicidal ideation: No Renal/ Medical History: Denies: Hx Peritoneal Dialysis Skin Medical History: Reports Hx Eczema Surgical Hx: Negative - Immunizations Immunizations up to date: Yes Hx Diphtheria, Pertussis, Tetanus Vaccination: Yes Vertical Provider Document - CONSTITUTIONAL Agree With Documented VS: Yes Exam Limitations: No Limitations General Appearance: WD/WN, No Apparent Distress - INFECTION CONTROL TRAVEL OUTSIDE OF THE [place] IN LAST 30 DAYS: No - HEENT HEENT: Atraumatic, Normal ENT Exam, Normocephalic - NECK Neck: Normal Inspection - RESPIRATORY Respiratory: Breath Sounds Normal, No Respiratory Distress - CARDIOVASCULAR Cardiovascular: Regular Rate, Regular Rhythm - BACK Back: Normal Inspection - MUSCULOSKELETAL/EXTREMETIES Musculoskeletal/Extremeties: MAEW - NEURO Level of Consciousness: Awake, Alert, Appropriate Motor/Sensory: No Motor Deficit - DERM Integumentary: Warm, Dry, Rash - Maculopapular rash to the volar aspect of bilateral forearms Course - Re-evaluation Re-evalutation: 07/31/17 09:52 Patient presents with skin rash consistent with keratosis pilaris presentation, patient afebrile and nontoxic in appearance. Discussed need for use of moisturizers at home. - Vital Signs Vital signs: Temp Pulse Resp BP Pulse Ox 98.5 F 80 16 144/73 H 98 07/31/17 08:58 07/31/17 08:58 07/31/17 08:58 07/31/17 08:58 07/31/17 08:58 Discharge - Discharge Clinical Impression: Skin rash Condition: Stable Disposition: HOME, SELF-CARE Instructions: Atopic Dermatitis (Eczema) ([facility]), Topical Steroid Cream or Ointment ([facility]) Additional Instructions: Return immediately for any new or worsening symptoms Followup with your primary care provider, call tomorrow to make a followup appointment Prescriptions: Triamcinolone Acetonide [Aristocort 0.1% Cream] 1 applic TP TID #60 gm Referrals: ABDOUL GUADALUPE MD [ACTIVE STAFF] - Follow up as needed
== END 2017-07-31 09:27 | disposition home or self-care (01) ==
LOC: ER 08:54
DX: R21 Rash and other nonspecific skin eruption (principal)
CPT/HCPCS: 99282

== ENCOUNTER → 2019-09-28 | Outpatient (CLI) | payer MEDICAID ==
--- NOTE | 2019-09-28 16:13 | RADIOLOGY REPORT (SQ) ---
EXAM DESCRIPTION: U/S [id number] TRNABD 1GES W/ODOP IMAGES COMPLETED DATE/TIME: 09/28/2019 3:30 pm REASON FOR STUDY: ENCTR FOR SUPERVISION OF OTHER NORMAL , 1ST TRIMESTER (Z34.81) Z34.81 EN COUNTER FOR SUPRVSN OF NORMAL , FIRST TRIM COMPARISON: None. TECHNIQUE: Transvaginal static and realtime grayscale images acquired of the pelvis. Additional jesica cted spectral and color Doppler images recorded. All images stored on PACs. bHCG: Not available. CLINICAL DATES: 8 weeks 4 days LIMITATIONS: None. FINDINGS: FETUS: Single Living intrauterine . ULTRASOUND EGA: 7 weeks 5 days ULTRASOUND RITA: 05/11/2020 EFW: Not applicable less than 20 weeks. CRL: 1.5 cm FHR: 153 beats per minute. SURVEY: No visualized anomalies. AMNIOTIC FLUID: Adequate amount. PLACENTA: Not yet developed due to early gestation. SUBCHORIONIC BLEED: Yes. SIZE OF BLEED: 1.2 x 1.1 cm. UTERUS: No masses. No anomalies. CERVICAL LENGTH: 3.1 cm. Closed. RIGHT ADNEXA: Normal ovary with normal vascular flow. No adnexal free fluid. No adnexal masses. LEFT ADNEXA: Ovary not identified due to poor acoustical window. No adnexal free fluid. No adnexal masses. FREE FLUID: None. OTHER: No other significant finding. IMPRESSION: LIVING INTRAUTERINE . EGA 7 weeks 5 days. Small subchronic hemorrhage. Trimester of : First trimester - 0 to 13 weeks. TECHNICAL DOCUMENTATION: JOB ID: [id number] [employer]- All Rights Reserved rev Reading location - IP/workstation name: [email or web address]
== END ==
LOC: RAD 14:26
PROVIDERS: ATTEND Nurse Practitioner Family
DX: O46.91 Antepartum hemorrhage, unspecified, first trimester (principal); Z3A.01 Less than 8 weeks gestation of pregnancy
CPT/HCPCS: 76801